=== PATIENT | male | born 1955 | race Caucasian/White ===

== ENCOUNTER 2021-07-14 08:30 | Outpatient (RCR) | payer MEDICARE, SELFPAY ==
--- NOTE | 2021-04-22 08:36 | PCCPR ---
Pre stent states could not walk across the parking lot without SOB.
[2021-04-22 08:38] VITALS: BP 146/62; PULSE 53; RESP 16; O2SAT 97
[2021-04-22 09:03] VITALS: PULSE 53
--- NOTE | 2021-06-12 08:21 | PCCPR ---
Absent Rudolph called states he had a covid 19 booster yesterday and is feeling rough and will not be in to exercise. 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
[2021-06-23 12:21] LABS: Glucose Point of Care 169 mg/dl (65-105)
--- NOTE | 2021-07-08 15:45 | PCCPR ---
Addendum entered by Shalini Kelly RN 07/10/21 08:59: Rudolph called again today states he has lost his taste and is being tested for covid. States his first test cme back negative and has been retested awaiting results. Original Note: Rudolph will be absent tomorrow, not feeling well.
== END 2021-07-14 19:30 | disposition home or self-care (01) ==
LOC: ANHCPREHAB 08:30
PROVIDERS: PCP Family Medicine
DX: Z95.5 Presence of coronary angioplasty implant and graft (principal)
CPT/HCPCS: 93798

== ENCOUNTER 2021-07-14 09:23 | Outpatient (CLI) | payer MEDICARE, SELFPAY ==
[2021-07-14 10:29] LABS: CRP < 0.5 mg/dL (<1.0)
[2021-07-14 10:43] LABS: Erythrocyte Sedimentation Rate 13 mm/hr (0-20)
[2021-07-16 09:08] LABS: Tissue Transglutaminase IgA Ab <1.0 U/mL (<15.0)
[2021-07-16 20:29] LABS: Tissue Transglutaminase IgG Ab <1.0 U/mL (<15.0)
== END 2021-07-14 09:24 | disposition home or self-care (01) ==
PROVIDERS: PCP Family Medicine; Visit Provider Internal Medicine Gastroenterology
DX: K52.9 Noninfective gastroenteritis and colitis, unspecified (principal)
CPT/HCPCS: 36415; 83516; 85652; 86140

== ENCOUNTER 2021-09-22 00:04 | Day surgery (SDC) | payer MEDICARE, SELFPAY ==
[2021-07-04 10:32] VITALS: BMI 31.6
[2021-09-16 12:25] VITALS: BMI 31.6
[2021-09-22 07:53] VITALS: BP 113/73; PULSE 70; RESP 20; TEMP 36.1; O2SAT 96
--- NOTE | 2021-09-22 08:01 | P.PNAN_ITS ---
Anes - Initial Pre Proc Eval Procedure: Operation Date: 09/22/21 09:00 Proposed Procedures p Colonoscopy - Parth Ayala MD Date/Time: 09/22/21 08:01 Surgeon: Parth Ayala MD Pre Op Diagnosis: diarrhea Patient Data Age: 66 Gender: M Height: 1.83 m Weight: 107.1 kg Last Vital Signs Temp 36.1 C L 09/22/21 07:53 Pulse 70 09/22/21 07:53 Resp 20 09/22/21 07:53 BP 113/73 09/22/21 07:53 Pulse Ox 96 09/22/21 07:53 Allergies Allergy/AdvReac Type Severity Reaction Status Date / Time No Known Allergies Allergy Unknown Verified 09/22/21 07:51 Home Medications Medication Instructions Recorded Confirmed Type atorvastatin 80 mg PO HS 04/22/21 09/16/21 History carvedilol 3.125 mg PO BID 04/22/21 09/16/21 History paroxetine HCl 40 mg PO QAM 04/22/21 09/16/21 History sacubitril-valsartan [Entresto] 1 tablet PO BID 04/22/21 09/16/21 History ticagrelor [Brilinta] 90 mg PO Q12H 04/22/21 09/16/21 History insulin glargine [Basaglar KwikPen 10 unit SUBCUT DAILY 04/23/21 09/16/21 History U-100 Insulin] insulin aspart U-100 [Novolog 10 unit SUBCUT AC 07/04/21 09/16/21 History Flexpen U-100 Insulin] nitroglycerin 0.4 mg SUBLINGUAL PRN PRN 07/04/21 09/16/21 History Patient hx anesthesia problems: none Family hx anesthesia problems: none Results Review: All pre-operative results and documents have been reviewed as part of the pre-operative evaluation. [facility] Past Medical History Medical History (Updated 09/22/21 @ 08:02 by Fco Jarvis MD) Anxiety CAD (coronary artery disease) Chronic diarrhea Diabetes mellitus Irritable bowel syndrome with diarrhea Obesity Social History Social History Smoking packs per day: 1 Smoking cigarettes per day: 20.0 Years smoked: 20 Smoking pack-years: 20.00 Smoking status: Former smoker Tobacco type: cigarettes Alcohol intake: never Substance use: never Substance use type: does not use Living arrangements: with friend(s) Spiritual care concerns: No Anes - Eval Final PreProcedure Day of Procedure 09/22/21 08:01 Patient weight: obese Heart: regular rate and rhythm Lungs: clear to auscultation Airway: Mallampati scale class II Neurological: alert and oriented Last oral intake: >/= 8 hours ASA classification: III Emergent: no Anesthetic plan: proceed Anesthesia type and monitoring: general GIVS and standard monitoring Results Review: All pre-operative results and documents have been reviewed as part of the pre-operative evaluation. Informed Consent: The patient's anesthetic plan and its attendant risks and benefits were discussed with the patient/family/POA. Questions were solicited and answers provided to the satisfaction of the patient/family/POA.
[2021-09-22] MEDS: LACTATED RINGERS 1,000 ML 150 ML IV CONT (08:03)
[2021-09-22 08:09] LABS: Glucose Point of Care 223 mg/dl (65-105)
--- NOTE | 2021-09-22 08:29 | PM.HPGS ---
History of Present Illness History of Present Illness Consent: Risks, benefits, and alternatives have been discussed and questions answered. Patient agrees to proceed with procedure. Chief complaint: diarrhea Narrative: Rudolph Felix is a 66 year old male here for colonoscopy because of diarrhea, last colonoscopy 2014, serology for celiac negative. Review of Systems Constitutional: Constitutional: Denies headache(s) and Denies weakness Eyes: Eyes: Denies blurry vision ENT: Reports Normal hearing present, Denies headache(s) and Denies neck pain Cardiovascular: Cardiovascular: Denies chest pain and Denies dyspnea Respiratory: Respiratory: Denies dyspnea Gastrointestinal: Gastrointestinal: Reports no additional gastrointestinal complaints Genitourinary: Genitourinary: Denies dysuria Musculoskeletal: Musculoskeletal: Denies neck pain Integumentary/Breasts: Skin/Breast: Denies dry skin Neurologic: Reports Normal hearing present, Denies headache(s) and Denies weakness Psychiatric: Psychiatric: Denies anxiety Endocrine: Endocrine: Denies change in body appearance Hematologic/Lymphatic: Hematologic/Lymphatic: Denies easy bleeding Allergic/Immunologic: Allergic/Immunologic: Denies urticaria PMFSH Past Medical History Medical History (Updated 09/22/21 @ 08:02 by Fco Jarvis MD) Anxiety CAD (coronary artery disease) Chronic diarrhea Diabetes mellitus Irritable bowel syndrome with diarrhea Obesity Social History Social History Smoking packs per day: 1 Smoking cigarettes per day: 20.0 Years smoked: 20 Smoking pack-years: 20.00 Smoking status: Former smoker Tobacco type: cigarettes Alcohol intake: never Substance use: never Substance use type: does not use Living arrangements: with friend(s) Spiritual care concerns: No Meds Home Medications and Allergies Home Medications Medication Instructions Recorded Confirmed Type atorvastatin 80 mg PO HS 04/22/21 09/16/21 History carvedilol 3.125 mg PO BID 04/22/21 09/16/21 History paroxetine HCl 40 mg PO QAM 04/22/21 09/16/21 History sacubitril-valsartan [Entresto] 1 tablet PO BID 04/22/21 09/16/21 History ticagrelor [Brilinta] 90 mg PO Q12H 04/22/21 09/16/21 History insulin glargine [Basaglar KwikPen 10 unit SUBCUT DAILY 04/23/21 09/16/21 History U-100 Insulin] insulin aspart U-100 [Novolog 10 unit SUBCUT AC 07/04/21 09/16/21 History Flexpen U-100 Insulin] nitroglycerin 0.4 mg SUBLINGUAL PRN PRN 07/04/21 09/16/21 History Allergies Allergy/AdvReac Type Severity Reaction Status Date / Time No Known Allergies Allergy Unknown Verified 09/22/21 07:51 Vital Signs Vital Signs - 24 hr 09/22/21 07:53 Temperature 97 F L Pulse Rate 70 Respiratory Rate 20 Blood Pressure 113/73 Pulse Oximetry 96 Exam Const: General: comfortable and no acute distress HENMT: General nose exam: Normal nares present Eyes: General: appearance normal, both eyes and all related structures Neck: Neck: no JVD Resp: Auscultation: clear to auscultation bilaterally Cardio: Rate: regular rate Rhythm: regular rhythm GI: Inspection: non-distended GI Palp: Yes Soft to palpation Skin: General skin exam: normal color Neuro: General: gait normal Speech: normal speech Extrem: General: normal to inspection Psych: Mental Status: mental status grossly normal Assessment and Plan Assessment and plan (1) Irritable bowel syndrome with diarrhea: Code(s): K58.0 - Irritable bowel syndrome with diarrhea Status: Acute Assessment and Plan: colonoscopy with bx, assess if microscopic colitis
[2021-09-22 08:43] VITALS: BP 101/59; PULSE 58; RESP 14; O2SAT 94
[2021-09-22 08:53] VITALS: BP 97/57; PULSE 55; RESP 16; O2SAT 97
[2021-09-22 09:03] VITALS: BP 130/70; PULSE 55; RESP 18; O2SAT 98
== END 2021-09-22 09:15 | disposition home or self-care (01) ==
PROVIDERS: PCP Family Medicine; Visit Provider Internal Medicine Gastroenterology
PROC: 0DJD8ZZ Inspection of Lower Intestinal Tract, Via Natural or Artificial Opening Endoscopic (ICD-10-PCS; CPT 45378; principal; 2021-09-22 09:00)
DX: R19.7 Diarrhea, unspecified (principal); D12.2 Benign neoplasm of ascending colon; D12.5 Benign neoplasm of sigmoid colon; Z90.49 Acquired absence of other specified parts of digestive tract; K64.8 Other hemorrhoids; F41.9 Anxiety disorder, unspecified; I25.10 Atherosclerotic heart disease of native coronary artery without angina pectoris; E11.9 Type 2 diabetes mellitus without complications; K58.0 Irritable bowel syndrome with diarrhea; Z87.891 Personal history of nicotine dependence; Z79.4 Long term (current) use of insulin; E66.9 Obesity, unspecified; Z68.32 Body mass index [BMI] 32.0-32.9, adult
CPT/HCPCS: 45385; 45380; 82948; 88305; J2704; J7120

== ENCOUNTER 2023-09-17 10:25 | Outpatient (CLI) | payer MEDICARE, SELFPAY ==
[2023-09-17 12:23] LABS: Toxigenic C. Diff NEGATIVE (NEGATIVE)
[2023-09-27 19:11] LABS: Calprotectin, Stool 80 mcg/g; Pancreatic Elastase, Stool 357 mcg/g
== END 2023-09-17 10:26 | disposition home or self-care (01) ==
PROVIDERS: PCP Family Medicine; Visit Provider Nurse Practitioner
DX: K52.9 Noninfective gastroenteritis and colitis, unspecified (principal)
CPT/HCPCS: 82653; 83993; 87045; 87177; 87209; 87269; 87427; 87449; 87493

== ENCOUNTER 2025-02-01 07:44 | Outpatient (CLI) | payer MEDICARE, SELFPAY ==
--- NOTE | ~2025-02-01 | PE_ITS ---
EXAMINATION: PET_PETPSMAST_PT DATE: 02/01/2025 09:54 INDICATION: Prostate cancer TECHNIQUE: 4.839 mCi of Illucix Ga-[id number]) was administered i.v. Low dose computed brooke graphy (CT) images were acquired from the base of the brain to the base of the brain to the proximal thighs for attenuation correction and anatomic localization. Positron emission tomography (PET) image s were acquired in the same distribution beginning 88 minutes after injection. Images including fused PET/CT images were reconstructed in axial, coronal, and sagittal planes. Automated exposure control technique was employed. The dose-length product was 1316.45mGy-cm. COMPARISON: None FINDINGS: Head/neck: Typical pattern of symmetric physiologic increased activity in the lacrimal, parotid and submandibula r glands as well as along the mucosa of the nasal and oral cavities, pharynx and hypopharynx. No path ologically enlarged cervical lymphadenopathy or suspicious foci of increased uptake in the visualized head or neck. Chest: There are couple nonspecific 5-6 and ulnar nodules without evident pacemaker activity in the left low er lobe. No other suspicious pulmonary nodules, pneumonia, pulmonary edema or pleural effusion. Heart size is normal. Atherosclerotic coronary artery calcification. Aortic valve calcification. No perica rdial effusion. Thoracic aorta is normal in caliber. No pathologically enlarged or PSMA avid thoracic lymphadenopathy. Abdomen/pelvis/proximal thighs: Physiologic renal accumulation and excretion of activity in the kidneys, bladder and along portions o f ureters. Prostatomegaly measuring 4.9 x 4.4 cm. Small focus of increased uptake posteriorly in the left peripheral zone of the enlarged prostate with maximal SUV of 6.8 likely corresponding to the rep orted biopsy-proven primary prostate cancer.. Normal degree and slightly heterogenous pattern of incr eased uptake throughout the liver and spleen without radiologic correlate or dominant PSMA avid lesio n. Cholecystectomy clips at the gallbladder fossa. The pancreas and bilateral adrenal glands are norm al. Moderate uptake scattered throughout the bowels with typical duodenal and proximal jejunal predom inance and without radiologic correlate, also likely physiologic. Mild scattered diverticulosis witho ut adjacent from trace stranding to suggest diverticulitis. No other abnormal foci of increased uptak e or pathologically enlarged lymphadenopathy in the abdomen, pelvis or proximal thighs. Musculoskeletal: Small focus of likely extravasated uptake at the site of injection at the left hand. No suspicious ly tic, blastic or abnormally PSMA avid bone lesions. IMPRESSION: 1. Small focus of increased uptake at the left peripheral zone of the enlarged prostate consistent wi th primary prostate cancer. No evident metastatic disease. 2. A couple indeterminate 5-6 mm left lower lobe nodules without PSMA activity, most likely sequela o f old granulomatous disease. If the patient is low risk for lung cancer, no follow-up is needed. If t he patient is high risk (i.e., history of smoking or asbestos or significant radiation exposure), opt ional follow-up chest CT could be considered at 12 months. Reviewed, dictated and finalized at location A. IMPRESSION: 1. Small focus of increased uptake at the left peripheral zone of the enlarged prostate consistent with primary prostate cancer. No evident metastatic disease . 2. A couple indeterminate 5-6 mm left lower lobe nodules without PSMA activity, most likely sequela of old granulomatous disease. If the patient is low risk f or lung cancer, no follow-up is needed. If the patient is high risk (i.e., hist ory of smoking or asbestos or significant radiation exposure), optional follow- up chest CT could be considered at 12 months.
--- OUTSIDE RECORDS SUMMARY | 2025-02-01 07:49 | XMS_ITS | Clinical Summary ---
Author Organization [facility] Address [address] [place] [address] Care Team Providers Care Environmental Manager Name Role Phone Misbah Muniz MD Primary Care Provider [phone] Source Comments [facility],non-owned Affiliates and Associated Physician Practices is amultiple site organization consisting of ambulatory clinics and hospital sitesin [place], [place], [place] and [place]. This disclosure is being madepursuant to the Care Everywhere program and may not contain all information available regarding this patient. Last updated 18.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 Gender Identity Not on file Sexual Orientation Not on file Plan of Treatment Health Maintenance Due Date Last Done Comments COLOGUARD (AGES 45-75) - COL ON CA SCREENING 1953 COLON MONITORING 1953 COLONOSCOPY - COLON CA SCREENING 1953 CT COLONOGRAPHY - COLON CA SCREENING 1953 Colorectal Cancer Screening 1953 FIT - COLON CA SCREENING 1953 FLEX SIG - COLON CA SCREENING 1953 LIPID TESTING 1953 MEDICARE AWV 12 MONTHS 1953 HEPATITIS C SCREENING 05/06/1971 DTAP/TDAP/TD VACCINES (1 - Tdap) 1972 PNEUMOCOCCAL VACCINE 50+ (1 of 1 - PCV) 2003 ZOSTER VACCINE (1 of 2) 2003 COVID-19 VACCINE ( - 2023-2 5 season) 2024 DEPRESSION SCREENING 08/02/2024 INFLUENZA VACCINE (Season Ended) 2025 Respiratory Syncytial Virus (RSV) Vaccine Pt: or over 60 yrs (1 - 1-dose 75+ series) 2028 HEPATITIS B VACCINE Aged Out No longe r eligible based on patient's age to complete this topic HIB VACCINE Aged Out No longer eligi ble based on patient's age to complete this topic HPV VACCINE Aged Out No longer eligi ble based on patient's age to complete this topic MENINGOCOCCAL (Group B) VACC INE SHARED DECISION-MAKING Aged Out No longer eligibl e based on patient's age to complete this topic MENINGOCOCCAL GROUPS A/C/Y/W VACCINE Aged Out No longer eligible b ased on patient's age to complete this topic Insurance MEDICARE [facility] Address: [address] [place] [address] MEDICARE ANTHEM Care Teams Environmental Manager Relationship Specialty Start Date End Date Misbah Muniz MD [address] [place] [address] PCP - General 09/25/21
--- OUTSIDE RECORDS SUMMARY | 2025-02-01 07:49 | XMS_ITS | Clinical Summary ---
Author Organization [facility] Address [address] [place] [address] Care Team Providers Care Painter Ordnance Name Role Phone Misbah Muniz MD Primary Care Provider [phone] Homa King MANAGEMENT INSTRUCTOR Unavailable [phone] Karri Courtney MD Unavailable [phone] Sarah Blount MANAGEMENT INSTRUCTOR Unavailable [phone] Lakhwinder Jarrell MD Unavailable Tyler Luna MD Unavailable Allergies Active Allergy Reactions Criticality Noted Date Comments Dapagliflozin Other (See comments) High 03/02/2023 UTI Metformin Diarrhea High 03/02/2023 Medications lancets (ONETOUCH DELICA LANCETS) 33 gauge misc use to check glucose 4x daily 400 each 3 2013 Active sacubitril-valsa rtan (ENTRESTO) 24-26 mg tabletIndication s:chronic heart failure Take 1 tablet by mouth 2 (two) times a day 60 tablet 2018 Active aspirin 81 mg enteric coated tabletIndication s:acute myocardial infarction,Myoca rdial Reinfarction Prevention Take 1 tablet (81 mg total) by mouth daily 30 tablet 2018 Active atorvastatin (LIPITOR) 80 mg tablet Take 1 tablet (80 mg total) by mouth daily Active carvediloL (COREG) 6.25 mg tablet Take 0.5 tablets (3.125 mg total) by mouth 2 (two) times a day with meals 2021 Active blood-glucose sensor (FreeStyle Henry 3 Sensor) device Act paolo blood glucose diagnostic (OneTouch Ultra Test) stripIndications :Type 2 diabetes mellitus with hyperglycemia, with long-term current use of insulin ([facility]),Hyperlipid emia, unspecified hyperlipidemia type TEST FOUR TIMES DAILY 400 strip 1 2022 Active nitroglycerin (NITROSTAT) 0.[address] 1 tablet (0.4 mg total) under the tongue every 5 (five) minutes as needed for chest pain 30 tablet 3 2023 Active Vascepa 1 gram capsuleIndicatio ns:Hyperlipidemi a associated with type 2 diabetes mellitus ([facility]) TAKE 2 CAPS BY MOUTH TWICE A DAY 360 capsule 2 2024 Active pen needle, diabetic (BD Ultra-Fine Mini Pen Needle) 31 gauge x 3/16 needleIndication s:Type 2 diabetes mellitus with hyperglycemia, with long-term current use of insulin ([facility]) USE DIRECTED THREE TIMES DAILY 300 each 3 2024 Active tamsulosin (FLOMAX) 0.4 mg extended release capsule TAKE 1 CAPSULE BY MOUTH EVERY DAY WITH DINNER 90 capsule 1 2024 Active LANTUS 100 unit/mL (3 mL) pen for injectionIndicat ions:Type 2 diabetes mellitus with hyperglycemia, with long-term current use of insulin ([facility]) Inject 30 Units under the skin nightly 30 mL 3 2024 Active Additional Information Patient taking differently: 20-30 Unitssubcutaneous Nightly, Reported on 01/24/2025 gabapentin (NEURONTIN) 100 mg capsule Take 1 capsule (100 mg total) by mouth 3 (three) times a day 90 capsule 4 12/12 Active traMADoL (ULTRAM) 50 mg tabletIndication s:Chronic right shoulder pain Take 1 tablet (50 mg total) by mouth every 6 (six) hours as needed for pain 30 tablet 2024 Active mesalamine (LIALDA) 1.2 gram EC tablet TAKE 3 TABS BY MOUTH DAILY 2024 Active Trulicity 1.5 mg/0.5 mL pen injectorIndicati ons:type 2 diabetes mellitus Inject 0.5 mL (1.5 mg total) under the skin once a week 6 mL 3 01/03 Active insulin lispro (HumaLOG) 100 unit/mL pen for injectionIndicat ions:type 2 diabetes mellitus Inject 5-12 Units under the skin 3 (three) times a day before meals 45 mL 2 01/03 Active PARoxetine (PAXIL) 20 mg tablet TAKE 1 TABLET BY MOUTH EVERY DAY IN THE MORNING 90 tablet 2 2024 Active cholecalciferol (VITAMIN D-3) 3,000 unit tablet Take 0.6667 tablets (2,000 Units total) by mouth once a week Active ergocalciferol (VITAMIN D) 50,000 unit capsuleIndicatio ns:Vitamin D deficiency Take 1 capsule (50,000 Units total) by mouth once a week 12 capsule 4 01/24 Discontinued( Therapy completed) Trulicity 1.5 mg/0.5 mL pen injectorIndicati ons:type 2 diabetes mellitus Inject 0.5 mL (1.5 mg total) under the skin once a week 6 mL 3 01/03 Discontinued( Reorder) PARoxetine (PAXIL) 20 mg tablet TAKE 1 TAB BY MOUTH EVERY MORNING 100 tablet 1 01/04 Discontinued insulin lispro (HumaLOG) 100 unit/mL pen for injection Inject 30-45 Units under the skin 3 (three) times a day before meals 120 mL 3 01/03 Discontinued( Reorder) cyclobenzaprine (FLEXERIL) 10 mg tabletIndication s:Muscle cramping Take 1 tablet (10 mg total) by mouth 3 (three) times a day as needed for muscle spasms 30 tablet 01/24 Discontinued( Therapy completed) insulin aspart (NovoLOG) 100 unit/mL (3 mL) pen for injection SSI, SubQ, tid with meals, 0 01/24 Discontinued( Therapy completed) Active Problems Problem Noted Date Diagnosed Date Lung nodules 01/04/2025 Assessment & Plan (01/04/2025 12:05 PM CDT): 0.8 cm right lower lobe nodule and 0.6 cm left lobe nodule. Will check chest CT. Patient without significant smoking history, smoked for 1 year. He denies any cough or shortness for breath. No fevers or night sweats. Prostate irregularity 12/12/2024 Assessment & Plan (01/04/2025 12:02 PM CDT): Scheduled for biopsy 01/16 Assessment & Plan (12/12/2024 8:46 AM CDT): Working with urology, mri of prostate showing lesion. Planning biopsy with urology, Dr. Rocha. Bradycardia 12/12/2024 Assessment & Plan (12/12/2024 12:54 PM CDT): Holter ordered by cardiology, patient will picker and sorter load and unload tomorrow. Carvedilol reduced from 6.25 bid to 3.125 bid. He is feeling well, denies any dizziness, syncope or near-syncope. Chronic right shoulder pain 12/12/2024 Assessment & Plan (12/12/2024 12:53 PM CDT): Working with Orthopedic surgery, difficult receiving steroid injection as patient has large lipoma on right shoulder. He is scheduled for follow-up with Dr. Biggs later this month. Shoulder impingement syndrome, right 10/04/2024 Aftercare following right sh oulder joint replacement surgery 10/04/2024 Urinary retention 09/21/2024 Cervicalgia 05/09/2024 Assessment & Plan (2024 7:04 AM CDT): No injury; working with chiropractor. Has been taking Celebrex and tizanidine with little improvement in pain. Pain is muscular in nature however patient has not had any imaging, will check x-ray of neck. Recommended physical therapy, patient is agreeable. Encouraged continued use of NSAIDs, p.r.n. muscle relaxers and gentle stretching/range of motion exercises. Patient denies any radiating pain or numbness. Vitamin D deficiency 05/09/2024 Fatigue 05/04/2023 Assessment & Plan (05/04/2023 12:20 PM CDT): Patient reports gradual onset of increased fatigue. He reports sleeping in longer than normal and daytime sleepiness. Denies morning headaches, denies recent weight gain, denies snoring. Reports waking up with a dry mouth. Discussed sleep medicine referral for evaluation of DENILSON. Paroxysmal atrial fibrillation 05/04/2023 Assessment & Plan (2024 6:56 AM CDT): No recurrence continues following with Cardiology. Assessment & Plan (05/04/2023 12:09 PM CDT): Continue current medication regimen, aspirin 81 mg, brilinta 90mg and enestro 24-26 mg daily. Following with cardiology. [facility]/04/[facility]23 Assessment & Plan (2024 7:02 AM CDT): Preventative exam; reviewed screenings and vaccinations. Influenza vaccine given today. Assessment & Plan (05/04/2023 12:16 PM CDT): Preventative exam. Reviewed recommended preventative screenings and vaccinations. Discussed health maintenance topics. Encourage regular physical activity. Encourage annual flu vaccine. Ordered fasting labs today. Current on colonoscopy. Hyperlipidemia associated with type 2 diabetes fanta mora 01/14/2022 Assessment & Plan (01/03/2025 9:37 AM CDT): Chronic problem. Currently taking Atorvastatin 80mg & new vascepa 2gm bid. Last lipid panel: 12/12/24 LDL=78, NZ=083. Assessment & Plan (12/12/2024 1:14 PM CDT): LDL = 78, continues high-intensity statin, atorvastatin 80 mg daily as well as Vascepa. Strongly encouraged working on avoiding dietary fats such as fried, greasy foods as well as limiting red meats. Assessment & Plan (09/07/2024 9:50 AM METALLURGY TEACHER): Chronic problem. Currently taking Atorvastatin 80mg & new vascepa 2gm bid. Last lipid panel: 05/09/24 LDL=87, BV=110 Assessment & Plan (05/22/2024 9:35 AM CDT): Chronic problem. Currently taking Atorvastatin 80mg & new vascepa 2gm bid. Last lipid panel: 05/09/24 LDL=87, SO=850 Assessment & Plan (01/18/2024 1:48 PM CDT): Chronic problem. Currently taking Atorvastatin 80mg & new vascepa 2gm bid. Last lipid panel: 05/04/23 LDL=77, UG=740. Assessment & Plan (09/21/2023 1:08 PM METALLURGY TEACHER): Chronic problem. Currently taking Atorvastatin 80mg & new vascepa 2gm bid. Last lipid panel: 05/04/23 LDL=77, RI=209. Assessment & Plan (06/15/2023 11:47 AM METALLURGY TEACHER): Chronic problem. Currently taking Atorvastatin 80mg & new vascepa 2gm bid. Last lipid panel: 05/04/23 LDL=77, TW=794. No changes at this time. Assessment & Plan (05/04/2023 12:22 PM CDT): Continues atorvastatin 80 mg and denies myalgias. Will repeat fasting labs. Assessment & Plan (11/24/2022 10:15 AM CDT): Chronic problem. Currently taking Atorvastatin 80mg. Last lipid panel: 05/18/22 LDL=89, MU=354. No changes at this time. Assessment & Plan (04/23/2022 9:03 AM CDT): Chronic problem. On statin therapy, no changes. Assessment & Plan (01/15/2022 9:26 AM CDT): Chronic problem. On statin therapy, no changes. Flank pain 07/24/2021 Assessment & Plan (07/24/2021 12:49 PM METALLURGY TEACHER): Results for orders placed or performed in visit on 07/24/21 POCT urinalysis dipstick Result Value Ref Range Color, Urine, POC Yellow Clarity, ur, POC Clear Clear Glucose, ur, POC Negative Negative mg/dL Bilirubin, ur, POC Negative Negative, Small, Moderate, Large Ketones, ur, POC Negative Negative Specific [place], POC 1.025 1.005 - 1.030 Blood, ur, POC Negative Negative pH, ur, POC 7.0 5.0 - 8.0 Protein, ur, POC Negative Negative Urobilinogen, urine, POC 0.2 0.2 - 1.0 mg/dL Nitrite, ur, POC Negative Negative Leukocytes, ur, POC Negative Negative Lot Number [id number] Discussed need to increase water intake, patient drinking 16oz or less of water per day. Will send urine for culture. Encounter for prostate cancer screening 07/24/20 Assessment & Plan (07/24/2021 12:49 PM METALLURGY TEACHER): PSA ordered. Chest pain 03/20/2021 Chronic bilateral low back pain without sciatica 08/13/2020 Assessment & Plan (07/24/2021 12:50 PM METALLURGY TEACHER): Discussed differential. Will obtain imaging today to determine next steps. Will plan for PT and nsaids. Reviewed s/s warranting return. Assessment & Plan (08/13/2020 9:40 AM METALLURGY TEACHER): Encouraged otc tylenol prn back pain. Discussed heat, gentle ROM, increased activity/core strengthening & other non pharm methods of pain relief. Cyclobenzaprine sent. Reviewed med SE & scheduling. UA/cx ordered. Will contact w/results once rec'd. Reviewed red flags. Current moderate episode of major depressive disorder without prior episode 04/30/2020 Assessment & Plan (12/12/2024 1:04 PM CDT): Feels moods are stable overall, is frustrated with mobility limitations related to right shoulder pain. Typically is gardening this time of year. He overall feels that moods are managed well with current dosage of paroxetine 20 mg daily. We did discuss briefly adjusting medications and patient prefers to continue medication without change and will continue to monitor at this time. He is aware to reach out with any changes or concerns. He denies feeling hopeless or having any thoughts of self- harm. Assessment & Plan (05/04/2023 12:14 PM CDT): Patient reports moods are stable. He has been taking paroxetine for many years and reports a good response. Continue paroxetine 20 mg daily. Benign prostatic hyperplasia with lower urinary tract symptoms 08/24/2019 Overview (08/24/2019): Added automatically from request for surgery [id number] Coronary artery disease invo lving [place] coronary artery of [place] heart 01/12/2019 Overview (04/18/2021): Status post Synergy GAEL to mid RCA, Synergy GAEL to mid right PDA and another Synergy GAEL to mid circumflex on 10 January 2019 (SB). No ischemia on Cardiolite 20 March 2021. LVEF of 60%. Assessment & Plan (12/12/2024 1:13 PM CDT): Continue secondary prevention with atorvastatin and aspirin. Denies any chest/pressure or shortness for breath. Has nitro on hand if needed, denies use of nitro. Assessment & Plan (2024 7:03 AM CDT): Denies any chest pain or pressure. Continue secondary prevention with atorvastatin and aspirin. Requesting refill of nitroglycerin, has not required use of nitro. Assessment & Plan (05/04/2023 12:51 PM CDT): Continue secondary prevention. Assessment & Plan (01/12/2019 9:36 AM CDT): Patient presented to the emergency department with complains of pressure-like chest pain and shortness of breath after was discharged earlier yesterday. Cardiac workup so far was negative. EKG without any interval changes. Troponins remain negative. Will continue with telemetry monitoring Third troponin still pending. Allergy evaluated the patient and cleared for discharge if troponins remain negative. Patient to follow up with Dr. Courtney after discharge Hyponatremia 01/12/2019 Assessment & Plan (01/12/2019 9:37 AM CDT): Mildly hyponatremic. Likely secondary to fluid overload Was started on low-dose of Lasix. Follow up outpatient with Cardiology and PCP with repeat labs Hyperkalemia 01/12/2019 Assessment & Plan (01/12/2019 9:38 AM CDT): Mild hyperkalemia. A patient's medications had recently been changed to Started on low-dose Lasix. Patient to have a follow-up with repeat labs in 2-3 days Anxiety 01/12/2019 Assessment & Plan (01/12/2019 9:38 AM CDT): Xanax 0.25 p.o. B.i.d. Consider increasing the dose if needed Stable angina 01/09/2019 Assessment & Plan (01/09/2019 11:39 PM CDT): Concerning for unstable angina Will keep the patient NPO after [place] Planned for cardiac cath in a.m. By Dr. Courtney Cardiology consult Serial troponins Continue cardiac pertinent home medications NTG and ASA Morphine as needed Atrial fibrillation with RVR ([facility]) 9 Overview (04/18/2021): Not on full-dose oral anticoagulation. Assessment & Plan (01/12/2019 9:32 AM CDT): Rate controlled. Mandie, Currently on Eliquis oral anticoagulation. Managed by Cardiology. Continue with amiodarone and metoprolol with holding parameters. Discontinue lisinopril. Continue with entresto Assessment & Plan (01/10/2019 5:01 AM CDT): Patient presented to theED with CHATMAN and CP on exertion Troponins Negative EKG - no acute ischemic changes but noted to be in AFib with RVR Patient received aloading dose of cardizem and started on cardizem drip. BP was too low. cardizem drip was discontinue Patient received a dose digoxin 500mcg with improvement Currently in Afib With ventricular rate of low 110s Continue monitoring, Darekvest is on NPO after [place] Cardiology Consultted, patient is planned for Cardiac catheterization in a.m. Assessment & Plan (12/29/2018 5:20 PM CDT): Patient was seen and evaluated by Cardiology. He was switched to Eliquis oral anticoagulation Needs to rule out [place] for symptoms of angina. Patient possibly to get cardiac stress test or even cardiac catheterization - will follow up with Cardiology recommendations. Echocardiogram was done today consistent with visually estimated Ejection fraction at 30 %. Started metoprolol and entrsto Assessment & Plan (12/29/2018 2:26 AM CDT): Patient currently on a Cardizem drip. He also received digoxin and Lopressor. Cardiology is following. Patient still in an irregular heart rhythm at this time and tele showing a flutter. Chads Vasc is at least 3 given patient's age, diabetes and hypertension. He is currently on therapeutic dosing of Lovenox. CHATMAN (dyspnea on exertion) 12/29/2018 Assessment & Plan (01/09/2019 11:30 PM CDT): Suspect CHF due to rapid Afib v.s CAD Planned for Cardiac Cath in a.m. Assessment & Plan (12/29/2018 5:18 PM CDT): Echo was obtained today. Conclusions: Normal left ventricular wall thickness. Left ventricle cavity is within upper limits of normal. Moderate global left ventricular systolic dysfunction. Normal left ventricular diastolic function. Ejection fraction is visually estimated at 30 %. Estimated peak RVSP is 42-47 mmHg. Trivial regurgitation in the tricuspid valve. Patient was started on and rest on metoprolol. Cardiology on board. Assessment & Plan (12/29/2018 2:23 AM CDT): Echo has been ordered. Cardiac workup per cardiology. Chronic systolic congestive heart failure 2018 Overview (04/18/2021): Moderate LV dysfunction on echo 10 January 2019. Normal LVEF on echo 20 March 2021. On Entresto 24/26 b.i.d., Coreg 3.125 b.i.d. Assessment & Plan (12/12/2024 12:55 PM CDT): Managed by cardiology, continue Entresto. Denies any lower extremity swelling or shortness for breath. Clinically euvolemic. Assessment & Plan (05/09/2024 7:45 PM CDT): Stable; no changes in weight or lower extremity swelling. Assessment & Plan (05/04/2023 12:52 PM CDT): Denies chest pain/pressure, shortness of breath, or peripheral edema. No changes in weight. Following with cardiology. Assessment & Plan (01/12/2019 9:34 AM CDT): Stable and improving. BNP is down from 4000 to 1100 Continue current medications Assessment & Plan (12/29/2018 5:27 PM CDT): Echocardiogram results today consistent with: Normal left ventricular wall thickness. Left ventricle cavity is within upper limits of normal. Moderate global left ventricular systolic dysfunction. Normal left ventricular diastolic function. Ejection fraction is visually estimated at 30 %. Estimated peak RVSP is 42-47 mmHg. Trivial regurgitation in the tricuspid valve. This is secondary to persistent a flutter most likely. Cardiology is on board. Serial troponins so far were negative. EKG was without acute ischemic changes Will follow up with Cardiology recommendations. Hypertension associated with diabetes 11/30/2017 Assessment & Plan (01/03/2025 9:38 AM CDT): Chronic problem. Controlled on current entresto 24-26mg bid, carvedilol 6.25mg bid. Managed by cardiology. Assessment & Plan (09/07/2024 9:50 AM METALLURGY TEACHER): Chronic problem. Controlled on current entresto 24-26mg bid, carvedilol 6.25mg bid. Managed by cardiology. Assessment & Plan (05/22/2024 9:35 AM CDT): Chronic problem. Controlled on current entresto 24-26mg bid, carvedilol 6.25mg bid. Managed by cardiology. Assessment & Plan (05/09/2024 7:14 PM CDT): Condition is stable Discussed/ordered labs, encouraged healthy, low carbohydrate lifestyle and at least 150min/week of exercise, continue on entresto and carvedilol Assessment & Plan (01/18/2024 1:48 PM CDT): Chronic problem. Controlled on current entresto 24-26mg bid, carvedilol 6.25mg bid. Managed by cardiology. Assessment & Plan (09/21/2023 1:08 PM METALLURGY TEACHER): Chronic problem. Controlled on current entresto 24-26mg bid, carvedilol 6.25mg bid. Managed by cardiology. Assessment & Plan (06/15/2023 11:46 AM METALLURGY TEACHER): Chronic problem. Controlled on current entresto 24-26mg bid, carvedilol 6.25mg bid. Managed by cardiology. No changes at this time. Assessment & Plan (05/04/2023 12:21 PM CDT): Blood pressure well controlled today 124/72. Continue current medication regimen. Assessment & Plan (03/02/2023 4:18 PM CDT): Chronic, well controlled Importance of low salt diet and exercise were discussed Continue current meds Assessment & Plan (11/24/2022 10:18 AM CDT): Chronic problem. Controlled on current entresto 24-26mg bid, carvedilol 6.25mg bid. Managed by cardiology. No changes at this time. Assessment & Plan (08/25/2022 2:14 PM METALLURGY TEACHER): Chronic , well controlled Continue current meds including Entresto Assessment & Plan (04/23/2022 9:03 AM CDT): Controlled on current medications, no changes. Assessment & Plan (01/15/2022 9:26 AM CDT): Controlled on current medications, no changes. Assessment & Plan (05/22/2021 3:02 PM CDT): Chronic condition, stable. Controlled on current medications, no changes. Assessment & Plan (01/15/2021 12:53 PM CDT): Controlled on current medications. Continue plan. Assessment & Plan (09/19/2020 3:06 PM METALLURGY TEACHER): Controlled on current medications. Continue plan. Assessment & Plan (05/23/2020 3:36 PM CDT): Controlled on current medications. Continue plan. Assessment & Plan (02/22/2020 12:02 PM CDT): Controlled on current medications. Continue plan. Assessment & Plan (11/14/2019 2:48 PM CDT): Goal blood pressure is less than 140/85 Low salt diet recommended Daily aerobic exercise Continue current meds, including JAN-I or ARB Assessment & Plan (05/16/2019 3:37 PM CDT): Controlled on current medications. Continue plan. Continue follow up with cardiology Assessment & Plan (02/14/2019 3:27 PM CDT): Controlled on current medications. Continue follow up with cardiology Assessment & Plan (01/12/2019 9:33 AM CDT): Blood pressure is stable, lower side. Continue with current medications with holding parameters. Patient was started on small dose of Lasix by Cardiology. Discussed with patient orthostatic hypotension and associated symptoms and provided with fall precautions. Assessment & Plan (01/09/2019 11:32 PM CDT): Continue with cardiac pertinent home medications Assessment & Plan (12/29/2018 5:24 PM CDT): Patient was switched to Entresto. Lisinopril had been discontinued. Continue with metoprolol Currently on Cardizem drip Assessment & Plan (12/29/2018 2:22 AM CDT): Patient is normotensive at this time. He is on a Cardizem drip. Lisinopril has been continued with hold parameters. Will continue to monitor. Assessment & Plan (10/12/2018 9:14 AM CDT): Controlled on current medications. Assessment & Plan (11/30/2017 11:44 AM CDT): Goal blood pressure is less than 140/85 Low salt diet recommended Daily aerobic exercise Continue current meds, including JAN-I or ARB Class 1 obesity without seri ous comorbidity with body mass index (BMI) of 32.0 to 32.9 in adult 05/26/2017 Assessment & Plan (01/04/2025 12:07 PM CDT): Discussed healthy diet and importance of regular physical activity. Assessment & Plan (12/12/2024 12:55 PM CDT): BMI stable, will continue to monitor. Assessment & Plan (11/14/2024 9:03 AM CDT): Weight appropriate for patient. Assessment & Plan (05/09/2024 7:10 PM CDT): Discussed healthy diet and importance of regular physical activity. Assessment & Plan (07/24/2021 12:49 PM METALLURGY TEACHER): Discussed need for weight loss. Discussed healthy diet and importance of regular physical activity. Assessment & Plan (08/13/2020 9:39 AM METALLURGY TEACHER): Reviewed need to lose weight, reviewed health benefits. Reviewed recommendations for daily intake & activity 20-30 minutes/day. Discussed healthy diet and importance of regular physical activity. Assessment & Plan (01/09/2019 11:31 PM CDT): Dietary and lifestyle modifications Assessment & Plan (05/26/2017 11:13 AM CDT): Importance of following diet and exercising discussed. Calculus of gallbladder with out cholecystitis without obstruction 05/13/2017 Assessment & Plan (05/13/2017 3:25 PM CDT): The patient will need a CT with and without liver study due to ultrasound abnormalties. After ct results are received we will schedule the patient for a laparoscopic cholecystectomy with . Diarrhea, functional 12/31/2016 Overview (01/01/2017): Functional diarrhea Assessment & Plan (02/07/2019 3:39 PM CDT): He is ecstatic over the results of the last 2 weeks with the frit and the questran qid. Has decrease number and increased solidity. He will recap when cardiac rehab is finiashed ans we will reassess necessiy of colon evluation Assessment & Plan (01/17/2019 3:49 PM CDT): Reviewed notes,lqabs,images,procedures. 6 mos of explosive D on arising and after meals. No blood, no weight leoss. Has been given abios and lomotil without benefit and C Dif neg. Colon 11/14. In middle of cardiac efval and treatment with recent stents and A Fib and carying defibrillator. Will defer colon eval in light of ongoing cardiac. Will hi fiber diet and questran and return with shit list In 2 weeks. Assessment & Plan (12/29/2018 5:23 PM CDT): Patient had infectious workup outpatient by PCP which was negative His scheduled outpatient follow-up with Dr. Osman for colonoscopy Patient was recently started on Lomotil Will discontinue Lomotil due to possible side effects of tachycardia related to atropine. C diff was negative Will check for the electrolytes. Replete as needed Continue telemetry monitoring Assessment & Plan (12/29/2018 2:24 AM CDT): Patient states he was having up to 6 episodes a day however was started on Lomotil which has improved his diarrhea. Will send a C diff if patient continues to have loose stools. He states he had antibiotics 3 months ago. Fatty tumor 12/23/2016 Overview (12/25/2016): Lipoma Abrasion and/or friction burn of forearm, withou t infection 11/12/2016 Overview (12/25/2016): Forearm abrasion, non-infected Lipoma of right shoulder 11/12/2016 Overview (12/25/2016): Lipoma of right shoulder Assessment & Plan (12/19/2024 9:03 AM CDT): Given its increasing size and symptomatic nature we will set him up for removal. He currently however has a Holter monitor on. He is set to follow up with Cardiology this week. We will 1st ensure he is cleared from their standpoint to undergo the procedure. We will then set him up with a date. We have discussed postoperative restrictions. All questions answered. Spider bite wound 06/04/2016 Overview (11/06/2016): Spider bite, accidental or unintentional, initial encounter Assessment & Plan (01/15/2021 12:57 PM CDT): A1c 7.6. Little improvement. FBG and ac BG acceptable. Suspect issue r/t pc excursions. Recommend random pc checks with some ac BG. BG goals reviewed. Check on coverage for SGLT2. Acquired trigger finger 08/27/2014 Overview (11/05/2016): Trigger finger Type 2 diabetes mellitus wit h hyperglycemia, with long-term current use of insulin 12/16/2013 Overview (11/06/2016): DMII WO CMP NT ST UNCNTR Assessment & Plan (01/03/2025 9:50 AM CDT): Chronic problem. A1c not at goal but improved slightly from 8.6% 09/07/24 to now 8.4%. had steroid injections R shoulder approx 6 wks ago. BG have become lower & under control past 2-3 weeks. GMI on FSL showing 7.3%. Current medications: Trulicity 1.5mg weekly Basaglar 20-25 units daily Humalog 5 units twice times daily before meals (typically 5-12 units/meal). DN can be 8-12 units. UTD on labs. UTD DM eye exam (12/23/23 [facility]). Had appt 11/2024; will send letter to get copy of report. Strive for regular exercise (30min most days) and diet (get at least 4-5 servings of fruit and veggies daily, avoid processed foods, increase lean protein intake and decrease carb portions as well as fruit juices, regular soda & desserts). Watch carbs and simple sugars. Check the blood sugar Freestyle Henry 3. Check the feet daily for skin breakdown and infection. Assessment & Plan (12/12/2024 1:05 PM CDT): A1c 8.6%, now 8.4 %. Vaapyd-39-47 units daily. Humalog 5-8 units with meals, typically 5 units with lunch and 8 units with dinner. Patient reports he typically does not eat breakfast. Following with endocrinology, A1c has shown slight improvement continue focusing on diet changes. Recommended Lantus 25 units nightly Assessment & Plan (09/07/2024 10:06 AM METALLURGY TEACHER): Chronic problem. A1c not at goal and has worsened from 7.7% 05/22/24 to now 8.6%. several steroid injections recently. Discussed that with any steroid injection or tablets: increase basaglar by 10 units for the next 5-6 days. Monitor Freestyle closely. Once he sees your blood sugars start to taper down--start to taper down basaglar again. Current medications: Trulicity 1.5mg weekly Basaglar 20-25 units daily Novolog 5 units three times daily before meals (typically 5-8 units/meal) UTD on labs. UTD DM eye exam (12/23/23 [facility]). Strive for regular exercise (30min most days) and diet (get at least 4-5 servings of fruit and veggies daily, avoid processed foods, increase lean protein intake and decrease carb portions as well as fruit juices, regular soda & desserts). Watch carbs and simple sugars. Check the blood sugar Freestyle Henry. Check the feet daily for skin breakdown and infection. Assessment & Plan (05/22/2024 10:07 AM CDT): Chronic problem. A1c not at goal and had increased from 7.6% 01/18/24 to now 7.7%. recently completed 7 day steroids for R shoulder pain. Had adjusted his insulin accordingly & was well controlled. Current medications: Trulicity 1.5mg weekly--missed 4 weeks Basaglar 20-25 units daily Novolog 5 units three times daily before meals (typically 5-8 units/meal) UTD on labs. UTD DM eye exam (12/23/23 [facility]). Strive for regular exercise (30min most days) and diet (get at least 4-5 servings of fruit and veggies daily, avoid processed foods, increase lean protein intake and decrease carb portions as well as fruit juices, regular soda & desserts). Watch carbs and simple sugars. Check the blood sugar Freestyle Henry. Check the feet daily for skin breakdown and infection. Assessment & Plan (05/09/2024 7:09 PM CDT): Lab Results Component Value Date HGBA1C 7.5 01/18/2024 HGBA1C 8.2 09/21/2023 HGBA1C 8.0 06/15/2023 Managed by endocrinology. Stable; Medications: -trulicity 1.5 mg weekly -insulin novolog 30-45 units tid -insulin basaglar 46 units nightly Assessment & Plan (01/18/2024 2:23 PM CDT): Chronic problem. A1c not at goal but has improved from 8.2% 09/21/23 to now 7.5% Has greatly increased exercise. Has lowered basaglar & novolog amounts and decreased A1c. Current medications: Trulicity 1.5mg weekly--missed 4 weeks Basaglar 20-25 units daily Novolog 5 units three times daily before meals (typically 5-8 units/meal) UTD on labs. UTD DM eye exam (12/23/23 [facility]). Strive for regular exercise (30min most days) and diet (get at least 4-5 servings of fruit and veggies daily, avoid processed foods, increase lean protein intake and decrease carb portions as well as fruit juices, regular soda & desserts). Watch carbs and simple sugars. Check the blood sugar Freestyle Henry. Check the feet daily for skin breakdown and infection. Assessment & Plan (09/21/2023 1:49 PM METALLURGY TEACHER): Chronic problem. A1c not at goal and has worsened from 8.0% 06/2023 to now 8.2% To send me a message if Trulicity is too expensive. We can then try januvia (if GI testing is normal). Increase basaglar by 2 units weekly without lows during the night. Max 65 units/day. Current medications: Trulicity 0.75mg weekly x4 then increase to 1.5mg weekly Basaglar 45 units daily Novolog 25 units three times daily before meals For blood sugar over 180: take 30 units For blood sugar over 220: take 34 units For blood sugar over 260: take 36 units For blood sugar over 300: take 38 units UTD on labs. UTD on DM eye exam. Strive for regular exercise (30min most days) and diet (get at least 4-5 servings of fruit and veggies daily, avoid processed foods, increase lean protein intake and decrease carb portions as well as fruit juices, regular soda & desserts). Watch carbs and simple sugars. Check the blood sugar Freestyle Henry. Check the feet daily for skin breakdown and infection. Assessment & Plan (06/15/2023 12:02 PM METALLURGY TEACHER): Chronic problem. A1c not at goal but improved from 8.4% to now 8.0%. To let me know if he needs/wants to increase the Ozempic to 1mg pen. Increase your basaglar to 45 units instead of 40 units. Current medications: Ozempic.5mg weekly Basaglar 45 units daily Novolog 25 units three times daily before meals For blood sugar over 180: take 30 units For blood sugar over 220: take 34 units For blood sugar over 260: take 36 units For blood sugar over 300: take 38 units Strive for regular exercise (30min most days) and diet (get at least 4-5 servings of fruit and veggies daily, avoid processed foods, increase lean protein intake and decrease carb portions as well as fruit juices, regular soda & desserts). Watch carbs and simple sugars. Check the blood sugar Freestyle Henry. Check the feet daily for skin breakdown and infection. Assessment & Plan (05/04/2023 12:05 PM CDT): Following with endocrine, Dr. Jarrell. Patient is monitoring blood sugars with CGM and denies hypoglycemia episodes. Continue current medication regimen. Assessment & Plan (03/02/2023 4:17 PM CDT): Hba1c was Lab Results Component Value Date HGBA1C 8.4 03/02/2023 today, indicating inadequate DM control, but some improvement Goal Hba1c and blood glucose explained Diet and exercise were advised Prevention and treatment of hyypoglcyemia were discussed with the patient Blood glucose monitoring : start CGM with FSL Adjustment to medications: Ozempic 0.25 mg weekly, try to increase the dose, half way between 0.25 and 0.5 Take Novolog, 20 units before meals For sugars over 180, add 4 units For sugars over 220, add 6 units For sugars over 260, add 8 units For sugar over 300, add 10 units Assessment & Plan (11/24/2022 10:46 AM CDT): Chronic problem. Uncontrolled & worsening. A1c terrance from 8.3% 08/25/22 to now 9.2% intolerance to Farxiga--stopped 6 wks ago. Agreeable to adding Ozempic. Discussed insurance may not cover--may request alternative or no coverage at all. Sample given. ozempic 0.25mg weekly x2 then increase to 0.5mg weekly. Reviewed med SE & scheduling. Verified that he uses [facility] (formerly [facility] Will send [facility] [employer] message if questions or concerns. Not physically active. Discussed the need to strive for regular exercise (30min most days) and diet (get at least 4-5 servings of fruit and veggies daily, avoid processed foods, increase lean protein intake and decrease carb portions as well as fruit juices, regular soda & desserts). Watch carbs and simple sugars. Check the blood sugar 3 times per day. Check the feet daily for skin breakdown and infection. UTD on DM eye exam (11/20/22--no DMR). UTD on labs. Assessment & Plan (08/25/2022 2:13 PM METALLURGY TEACHER): Chronic, uncontrolled, worsening Importance of exercise and diet were discussed Medications , changes as follows : Stay on Farxiga, If you have another yeast penile infection, please call the office Take Basaglar, 30 units in the evening. Take Novolog 20 units before breakfast and dinner For sugars under 120, before meals , still take 12 units , if you are going to eat Assessment & Plan (04/23/2022 9:15 AM CDT): Chronic problem, improving. No medication changes. We discussed insulin adjustment if needed if he continues to lose weight. Update routine labs today. Assessment & Plan (01/15/2022 9:32 AM CDT): Chronic problem, improving. No medication changes. Samples of Farxiga today, he is in the donut hole. Work on increasing exercise. Assessment & Plan (09/30/2021 10:20 AM METALLURGY TEACHER): Hba1c was Lab Results Component Value Date HGBA1C 8.7 09/30/2021 today, indicating inadequate DM control Goal Hba1c and blood glucose explained Diet and exercise were advised Prevention and treatment of hyypoglcyemia were discussed with the patient Blood glucose monitoring : Adjustment to medications: Check your sugars before breakfast and dinner Stay on Basaglar , 30 units bedtime Novolog, 15 units before breakfast and dinner Start Farxiga, 10 mg in the morning ( 3 m worth samples provided ) Start Bydureon , 2 mg once a week ( samples provided ) If your sugars start dropping under 120, in the morning, lower Basaglar by 5 units weekly Youmight also have to lwer the Novolog Send a message via [email or web address] ,every two weeks , about your sugars. Pt to apply to [facility] patient's assistance program Assessment & Plan (07/24/2021 12:47 PM METALLURGY TEACHER): Lab Results Component Value Date HGBA1C 8.5 (H) 04/29/2021 HGBA1C 7.8 01/09/2021 HGBA1C 7.6 (A) 12/19/2020 Not well controlled. Patient follows with endocrinology. Discussed need to improve diet and resume weight loss efforts. Assessment & Plan (05/22/2021 4:21 PM CDT): Chronic condition, significantly improving with dietary changes and weight loss in last 5 weeks (last A1c checked just before he started this regimen). Encouragement given. If feasible, recommend he restart an SGLT2i given his cardiac conditions. He will check on the cost of this on his insurance when not in the donut hole and see if he can restart it. We often have samples to help when in the donut hole. For now reviewed how to continue adjusting insulin for weight loss. If going to eat a bigger meal (usually DN if so), then take a small dose aD instead of correcting, eg 4 units. Monitor FBG, if consistently <120 then stop Basaglar. Let us know if any issues with blood sugars between visits. Assessment & Plan (01/15/2021 12:56 PM CDT): A1c 7.6. Little improvement. Fasting and ac BG acceptable. Suspect that issue is mostly r/t pc excursions. Advised to check random pc BG. BG goals reviewed. Assessment & Plan (09/19/2020 3:08 PM METALLURGY TEACHER): A1c 7.7. Continues to make his own adjustments to insulin plan. Increase Jardiance to 2 tabs per day = 20 mg and will send rx for Farxiga 10 mg to see if more cost effective. Advised to schedule eye exam. Assessment & Plan (05/23/2020 3:27 PM CDT): A1c 7.9, worsening. Continues to not take his insulin according to plan despite education at [facility]. Reviewed concept of basal vs bolus insulin. Advised consistent dose of Basaglar 18 units at supper, Provided with instructions to adjust to goal of low 100's fasting. He is not to hold or adjust this based on pc dinner BG. Novolog 10 units as prandial dose with CF based on ac BG only 2:50>150. Increase Jardiance to 25 mg. Assessment & Plan (02/22/2020 12:05 PM CDT): A1c further improved to 7.2. Continue same medication plan. Assessment & Plan (11/14/2019 2:47 PM CDT): Last Hba1c was Lab Results Component Value Date HGBA1C 7.5 08/15/2019 today, indicating suboptimal DM control 1800 calorie, consistent carb diet recommended. No more than 30-45 grams of carbs per meal recommended, as well as avoiding high concentrated sweet drinks . 25-45 min daily exercise, combining both aerobic and resistance exercise recommended. The need to monitor blood glucose before meals and bedtime was discussed. Prevention and treatment of hyypoglcyemia discussed. Insulin dose: continue current regimen Continue Jardiance Assessment & Plan (08/15/2019 9:57 AM METALLURGY TEACHER): Hba1c was Lab Results Component Value Date HGBA1C 7.5 08/15/2019 today, indicating suboptimal DM control 1800 calorie, consistent carb diet recommended. No more than 30-45 grams of carbs per meal recommended, as well as avoiding high concentrated sweet drinks . 25-45 min daily exercise, combining both aerobic and resistance exercise recommended. The need to monitor blood glucose before meals and bedtime was discussed. Prevention and treatment of hyypoglcyemia discussed. Insulin dose: Continue current Start Jardiance, 10 mg daily , in a pt with CAD Assessment & Plan (05/16/2019 3:40 PM CDT): A1c improved to 7.6. FBG still above goal. Start metformin XR 500 with dinner. Will increase to 1000 if tolerating well. Increase Basaglar to 53 unit hs. Novolog 10 units ac and CF 2:50>150. Provided with instructions on how to increase each to goal. Assessment & Plan (02/14/2019 3:26 PM CDT): A1c worsening from 7.8 to 9.3. Restart metformin 1000 bid. Start with dinner dose , after dinner , for one week and then add the morning dose Take Basaglar at bedtime 25 and every 5-7 days if FBG not < 150. We will consider Trulicity in the future. Send in your blood sugar logs Advised to check with Dr. Nelson to see what he thinks about Invokana or Jardiance. Assessment & Plan (01/12/2019 9:31 AM CDT): Hold oral hypoglycemics. Continue Lantus and lispro with meals. Medium dose insulin sliding scale Assessment & Plan (01/09/2019 11:23 PM CDT): IDDM-2 Hold metformin Continue with lantus Low dose ISS - patient will be NPO after midnight Assessment & Plan (12/29/2018 5:14 PM CDT): Sugars are controlled at this time. Patient is on Lantus 10 units q.h.s. Continue with low-dose sliding scale. Assessment & Plan (12/29/2018 2:23 AM CDT): Sugars are controlled at this time. Patient is on Lantus 10 units q.h.s. Nightly which has been resumed. Will also order low-dose sliding scale. Patient may also be taking NovoLog 30 units t.i.d. Meals although it is unclear if patient is taking this. Patient seems to be unsure of the medications he is taking. Will hold for now and continue to monitor. Assessment & Plan (10/12/2018 9:19 AM CDT): A1c continues to go up. Now 7.8. He is not clear on how he is taking medication. Does not want to try metformin at reduced dose. Continue Trulicity, start Lantus 10 units. Will adjust weekly to FBG goal of 100-120. Hold Novolog for now. Send in BG log in 2 weeks and will determine Novolog plan at that time. Needs to focus on diet and exercise. Assessment & Plan (07/13/2018 3:21 PM METALLURGY TEACHER): Recent A1c 7.0 without reported hypoglycemia. No change to current medication plan. BG goals reviewed. Focus on diet and exercise. He will check with insurance re: coverage for GLP 1 after Aug 02. Assessment & Plan (11/30/2017 11:43 AM CDT): Your Hba1c today was: Lab Results Component Value Date HGBA1C 6.9 11/30/2017 meaning a 3 month average sugar of : 150 Your goal hba1c is under 7.0 to prevent long-term diabetes complications ( eye , kidney and nerve damage ) . Your goal sugars are in the 90-130 range Daily aerobic ( walking, riding a bike, swimming ) and resistance exercises ( light weight lifting, resistance band stretching ) for at least 30 minutes is recommended If you can not walk, chair exercises is very acceptable. As little as 15-20 minutes exercise , in one or two sessions a day, is still very helpful and will help to improve your diabetes control . Eat small portion meals, no more than 1800 calories Diet Try to eat not more than than 2-3 servings of carbs ( starches ) wiith your meals. Avoid soft drinks, including regular sodas , fruit juices and sweetened tea. Drink water instead. Eat plenty of green and leafy vegetables, including salads. Take your medications regularly,including your insulin injections. Monitor your sugar levels with finger sticks regularly and keep a log sheet or book. Bring your sugar meter and /or a log book or log sheet to every office visit. Assessment & Plan (05/26/2017 11:12 AM CDT): A1c 7.0. Will check creatinine and restart metformin as indicated. Continue Trulicity. Provided with specific Humalog plan. IC 10 and CF 1;50>150. Will likely need to be adjusted as appetite improves. To send in BG in 10 days. Disorder of bladder 12/16/2013 Overview (11/06/2016): BLADDER DISORDER NOS Dyslipidemia 12/16/2013 Overview (04/18/2021): LDL of 87 mg/dL on 20 September 2020. LDL of 63 mg/dL on 20 March 2021. On Lipitor 80 mg p.o. q.d.. Assessment & Plan (02/14/2019 3:27 PM CDT): Continue statin therapy Assessment & Plan (01/12/2019 9:31 AM CDT): On statin Assessment & Plan (01/09/2019 11:23 PM CDT): On statin Assessment & Plan (05/26/2017 11:12 AM CDT): Continue statin Dilated cardiomyopathy Assessment & Plan (01/12/2019 9:34 AM CDT): Stable. Patient was started on small dose of Lasix. Will be following up with Cardiology. Continue current medications Assessment & Plan (01/09/2019 11:41 PM CDT): Last echo on 12/28/2018 Conclusions: Normal left ventricular wall thickness. Left ventricle cavity is within upper limits of normal. Moderate global left ventricular systolic dysfunction. Normal left ventricular diastolic function. Ejection fraction is visually estimated at 30 %. Estimated peak RVSP is 42-47 mmHg. Trivial regurgitation in the tricuspid valve. Continue with lifevest Telemetry monitoring Will hold eliquis today in anticipation of planned cardiac cath in a.m. Resolved Problems Problem Noted Date Diagnosed Date Resolved Date BMI 33.0-33.9,adult 08/13/2020 08/13/19 21 Encounters Date Type Department Care Team Description 01/11/2025 Orders Only [facility] [address] [place] [address] Misbah Muniz MD 01/11/2025 Orders Only [facility] Diabetes and Endocrinology [address] [place] [phone] ProviderMary Jo MD 01/04/2025 11:30 AM CDT Office Visit [facility] [address] [place] [phone] Bianca Sotelo NP Lung nodules (Primary Dx); Prostate irregularity; Class 1 obesity due to excess calories without serious comorbidity with body mass index (BMI) of 32.0 to 32.9 in adult 01/04/2025 Telephone [facility] Diabetes and Endocrinology [address] [place] [phone] Ludy Hayes NP [place] 01/03/2025 9:30 AM CDT Office Visit [facility] Diabetes and Endocrinology [address] [place] [phone] Ludy Hayes NP Type 2 diabetes mellitus with hyperglycemia, with long-term current use of insulin (HCC) (Primary Dx); Hypertension associated with diabetes (HCC); Hyperlipidemia associated with type 2 diabetes mellitus (HCC) 12/29/2024 11:00 AM CDT Office Visit [facility] Orthopedic and Sports Medicine [address] [place] [phone] Demond Biggs MD Rotator cuff arthropathy of right shoulder (Primary Dx) 12/29/2024 Orders Only [facility] Orthopedic [facility] Sports Medicine [address] [place] [phone] Demond Biggs MD Rotator cuff arthropathy of right shoulder (Primary Dx); Arthrosis of right acromioclavicular joint 12/19/2024 9:00 AM CDT Office Visit [address] [place] [phone] Kumar Jones MD Lipoma of right shoulder 12/12/2024 8:30 AM CDT Office Visit [facility] [address] [phone] Bianca Sotelo NP Type 2 diabetes mellitus with hyperglycemia, with long-term current use of insulin (HCC) (Primary Dx); Chronic systolic congestive heart failure (HCC); Current moderate episode of major depressive disorder without prior episode (HCC); Coronary artery disease involving [place] coronary artery of [place] heart without angina pectoris; Prostate irregularity; Bradycardia; Chronic right shoulder pain; Hyperlipidemia associated with type 2 diabetes mellitus (HCC); Class 1 obesity due to excess calories without serious comorbidity with body mass index (BMI) of 32.0 to 32.9 in adult 11/17/2024 10:45 AM CDT - 11/17/2024 11:59 PM CDT Hospital Encounter [facility] [address] [facility] [address] [place] [address] Natasha Abdalla NP Spondylosis of lumbar region without myelopathy or radiculopathy (Primary Dx); Cervicalgia Discharge Disposition: Discharge to home or self care 11/16/2024 Orders Only [facility] [address] [phone] Misbah Muniz MD 11/16/2024 Telephone [facility] Diabetes and Endocrinology [address] [place] [phone] Ludy Hayes NP Med Management (Novolog) 11/15/2024 10:30 AM CDT Office Visit [facility] Orthopedic and Sports Medicine [address] [place] [phone] Rajendra Gooden PA Lipoma of extremity (Primary Dx); Arthrosis of right acromioclavicular joint 11/14/2024 10:15 AM CDT Lab [facility] [address] [place] [phone] Muscle cramping 11/14/2024 7:00 AM CDT Office Visit [facility] [address] [phone] Jessica Crawley NP Muscle cramping (Primary Dx); Acute right ankle pain; Class 1 obesity without serious comorbidity with body mass index (BMI) of 32.0 to 32.9 in adult, unspecified obesity type 11/14/2024 Results Follow-Up [facility] [address] [phone] Jessica Crawley NP Magnesium, Comprehensive metabolic panel, eGFR 11/10/2024 Results Follow-Up [facility] Orthopedics and Sports Medicine [address] [facility] [address] [place] [address] Rajendra Gooden PA MRI Shoulder Right WO Contrast 11/08/2024 6:25 AM CDT - 11/08/2024 11:59 PM CDT Hospital Encounter [facility] [address] [place] [address] Arthrosis of right acromioclavicular joint; Rotator cuff arthropathy of right shoulder Discharge Disposition: Discharge to home or self care from Last 3 Months Immunizations Immunization Administration Dates Next Due Influenza, Quadrivalent, Hig h Dose, Preservative Free, Intrr 05/04/2022,05/08/2021,04/30/2020 Influenza, Quadrivalent, Spl it, Preservative Free, Intramuscular 07/07/2023,05/04/2019,05/02/2018,05/01,04/28/2017,09/08/2016,05/02/2015 ,05/16/2013 Influenza, Trivalent, High D ose, Split, Preservative Free, Intramuscular 05/09/2024 Influenza, Trivalent, IM (MDV) 04/23/2014,2012 Influenza, Trivalent, Preser vative Free, Intramuscular 09/08/2016,06/19/2015 Influenza, Unspecified 05/04/2023(Deferr ed: Patient Refused),05/02/2023,05/02/2021, 021(Deferred: Patient Refused),04/21/2021(Deferred: Patient Refused),04/29/2018,04/08/2018(Deferre d: Patient Refused) Moderna SARS-CoV-2 Monovalen t Vaccination (12+ YRS) 06/11/2021 Pfizer SARS-CoV-2 Monovalent Vaccination (12+ Yrs) PURPLE 10/15/2020,09/17/2020 Pneumococcal Conjugate PCV 13 07/04/2018 Pneumococcal Polysaccharide PPV23 04/30/2020 RSV Vaccine, Pref, Recombina nt, Subunit, Adjuvanted, PF, IM (Arexvy) 07/07/2023 Sars-CoV-2, Unspecified 10/15/2020,09/17/2020 Tdap 05/08/2014,04/23/2014 ZOSTER Recombinant 06/16/2022 Surgical History Surgery Date Site/Laterality Comments BACK SURGERY 08/02/1972 - 08/01/1973 Back surgery APPENDECTOMY Appendectomy ROTATOR CUFF REPAIR 08/02/2016 - 08/01/2017 right rotator cuff surgery APPENDECTOMY 08/02/2007 - 08/01/2008 Appendectomy BACK SURGERY 08/02/1972 - 08/01/1973 Back surgery LIPOMA RESECTION 01/21/2017 Left Exc R shoulder lipoma CHOLECYSTECTOMY 08/02/2016 - 08/01/2017 Laparoscopic Cholecystectomy CARDIAC CATHETERIZATION 12/31/2018 - 01/29/2019 x 3 stents LASER OF PROSTATE W/ GREEN LIGHT PVP CORONARY ANGIOPLASTY WITH STENT PLACEMENT 2020 OTHER SURGICAL HISTORY heart stent Medical History Medical History Date Comments Hypertension hypertension Anxiety disorder anxiety Hyperlipidemia Hyperlipidemia Diabetes mellitus (HCC) Diabetes Hx Other Medical Diaherra Hx Other Medical Disc removal Hx Other Medical trigger finger R hand; Comments: CAROLYN 08/29/2014 - Complete tear of left rotator cuff Complete torn rotator cuff; Comments: BS 11/12/2016 - 09/23/2016 Dr Dian PULIDO Atrial fibrillation (HCC) Hematuria Erectile dysfunction Coronary artery disease Cardiac Stents x 3 Enlarged prostate Enlarged prostate laser ablation Type 2 diabetes mellitus (HCC) Family History Medical History Relation Name Comments Other Brother 2 Alive and well; Prostate cancer Father Cancer, pros olson; Breast cancer Mother Cancer, breast ; /Cancer, breast; Cancer Mother thyroid, breast Coronary artery disease Mother Gabriel nary artery disease; Hypertension Mother Hypertension; Thyroid disease Mother Thyroid diso rder; /Thyroid disorder; Alcohol abuse Other 1 Family history of Alcoholism; Diabetes Other 2 Family history of Diabetes mellitus; Relation Name Status Comments Brother 1 Alive Brother 2 Father Mother Other 1 Other 2 Social History Tobacco Use Types Packs/Day Years Used Date Smoking Tobacco: Former Cigarettes Q uit: 1975 Smokeless Tobacco: Former Chew Tobacco Cessation:Counseling Given: Not Answered Comments:Smoking History Packs/day: 1 ppd x 1 year. Alcohol Use Standard Drinks/Week Comments No 0 (1 standard drink = 0.6 oz pur e alcohol) [facility] Utilities Answer Date Recorded In the past 12 months has [employer], oil, or water [employer] threatened to shut off services in your home? No 09/26/2024 Social Connection and Isolat ion Panel [NHANES] Answer Date Recorded In a typical week, how many times do you talk on the phone with family, friends, or neighbors? More than three times a week 09/26/2024 How often do you get togethe r with friends or relatives? Once a week 09/26/2024 How often do you attend chur ch or methodist services? More than 4 times per year 09/26/2024 Do you belong to any clubs o r organizations such as methodist groups, unions, fraternal or athletic groups, or school groups? Yes 09/26/2024 How often do you attend meet ings of the clubs or organizations you belong to? More than 4 times per year 09/26/2024 Are you , , di vorced, , never , or living with a partner? 09/26/2024 AUDIT-C Answer Date Recorded Q1: How often do you have a drink containing alcohol? Never 01/24/2025 Q2: How many drinks containi ng alcohol do you have on a typical day when you are drinking? Patient does not drink Q3: How often do you have si x or more drinks on one occasion? Never 01/24/2025 Overall Financial Resource Strain (CARDIA) Answe r Date Recorded How hard is it for you to pa y for the very basics like food, housing, medical care, and heating? Not very hard 09/26/2024 PHQ-2 Answer Date Recorded PHQ-2 Total Score (If total score is 3 or more points, staff should administer the PHQ-9) 2 01/04/2025 Hunger Vital Sign Answer Date Recorded Within the past 12 months, y ou worried that your food would run out before you got the money to buy more. Never true 09/26/19 Within the past 12 months, t he food you bought just didn't last and you didn't have money to get more. Never true 09/26/2024 PRAPARE - Transportation Answer Date Re corded In the past 12 months, has l ack of transportation kept you from medical appointments or from getting medications? No 09/03 In the past 12 months, has l ack of transportation kept you from meetings, work, or from getting things needed for daily living? No 09/26/2024 PHQ-9 Answer Date Recorded PHQ-9 Total Score 5 08/03/2024 Housing Stability Vital Sign Answer Aguila e Recorded In the last 12 months, was t here a time when you were not able to pay the mortgage or rent on time? No 09/26/2024 In the past 12 months, how m any times have you moved where you were living? 0 09/26/2024 At any time in the past 12 m [facility], were you homeless or living in a residential (including now)? No 09/26/2024 Personal Safety Answer Date Recorded Have you ever been in or are you currently in a harmful physical or emotional relationship or is someone making you feel afraid or unsafe? 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 Not on file Not on file Obstetrics History Last Filed Vital Signs Vital Sign Reading Time Taken Comments Blood Pressure 104/66 01/04/2025 11:26 AM CDT Pulse 53 01/04/2025 11:26 AM CDT Temperature 36.4 C (97.6 F) 01/04/2025 11:26 AM CDT Respiratory Rate 18 01/04/2025 11:26 AM CDT Oxygen Saturation 97% 01/04/2025 11:26 AM CDT Inhaled Oxygen Concentration - - Weight 107 kg (236 lb) 01/04/2025 11:26 AM CDT Height 182.9 cm (6' 0.01) 01/04/2025 11:26 AM C DT Body Mass Index 32 01/04/2025 11:26 AM CDT Plan of Treatment Upcoming Encounters Date Type Department Care Team (Latest Contact Info) Description 02/05/2025 10:00 AM CDT Hospital Encounter [facility] Operating Room 1 [place] [address] Kumar Jones MD [address] [place] [address] [place] [address] 02/05/2025 10:00 AM CDT Anesthesia Event [facility] Operating Room 1 [place] [address] Khai Tapia MD 1 [facility] [place] [address] 02/05/2025 10:00 AM CDT - 02/05/2025 11:00 AM CDT Surgery [facility] Operating Room 1 [place] [address] Kumar Jones MD [address] [facility] [place] [address] EXCISION RIGHT SHOULDER MASS Scheduled Procedures Name Priority Associated Diagnoses Date/Ti me EXCISION SOFT TISSUE MASS Lipoma of right shoulder 02/05/2025 10:00 AM CDT Health Maintenance Due Date Last Done Comments Hepatitis C Screening 1955 Hepatitis B Screening 1971 Zoster Vaccine (2 of 2) 08/11/2022 06/16/2022 Covid-19 Vaccine (2023-2 5 season) 2024 06/11/2021, 06/11/2021, 10/15/2020, Additional history exists DTaP/Tdap/Td Vaccine (3 - Td or Tdap) 05/08/2024 05/08/2014, 04/23/2014 Influenza Vaccine (#1) 2025 , 07/07/2023, 05/02/2023, Additional history exists Albumin Creatinine Ratio, Urine 05/09/2025 05/09/2024, 05/04/2023, 05/18/2022, Additional history exists Well Visit 65+ 05/09/2025 05/09/2024, 1009/2022, 05/04/2022, Additional history exists Hemoglobin A1C 06/14/2025 12/12/2024, 020 12/2024, 05/22/2024, Additional history exists Colon Cancer Screening-Colonoscopy 08/20/2025 08/20/2015, 11/12/2014, 11/12/2014, Additional history exists eGFR 11/14/2025 11/14/2024, 2 10/2024, 09/24/2024, Additional history exists Lipid Panel 12/12/2025 12/12/2024, 03/2024, 05/04/2023, Additional history exists Foot Exam 01/03/2026 01/03/2025, 05/03, 03/02/2023, Additional history exists Depression Screening 01/04/2026 01/04/2025, 12/12/2024, 08/03/2024, Additional history exists Fall Risk Assessment 01/04/2026 01/04/2025, 12/12/2024, 09/25/2024, Additional history exists Prostate Cancer Screening-PSA 10/04/2026, 05/04/2023, 05/18/2022, Additional history exists Dilated Eye Exam 12/26/2026 12/26/2024, , 12/23/2023, Additional history exists Colon Cancer Screening-CT Colonography Discontinued 08/20/2015, 11/12/2014, 11/12/2014, Additional history exists Colon Cancer Screening-DNA Stool Discontinued 08/20/2015, 11/12/2014, 11/12/2014, Additional history exists Colon Cancer Screening-FIT Discontinued 08/20, 11/12/2014, 11/12/2014, Additional history exists Colon Cancer Screening-Sigmoidoscopy Discontinued 08/20/2015, 11/12/2014, 11/12/2014, Additional history exists Pneumococcal vaccine 65+ Completed 04/30/2020, 09/2017 Abdominal Aortic Aneurysm (A AA) Screen Completed 09/21/2024, 05/18/2017, 03/10/2017 Medical Devices Implanted Type Area Inspector [employer] Wafer Device Identifier Shelf Expiration Date Model / Serial / Lot [employer] [id number] Synergy 2.75mm 12mm 144cm Radiopaque 1 Access Port Inflation - [id number] Implanted:Qty: 1 on 01/10/2019 by Karri Courtney MD at [facility] Stent [employer] 04/19/2020 [id number] 270 / / [id number] [employer] [id number] Synergy 3.5mm 24mm 144cm Radiopaque 1 Access Port Inflation Lumen - [id number] Implanted:Qty: 1 on 01/10/2019 by Karri Courtney MD at [facility] Stent [employer] 05/22/2020 [id number] 350 / / [id number] [employer] [id number] Synergy 2.75mm 20mm 144cm Radiopaque 1 Access Port Inflation - [id number] Implanted:Qty: 1 on 01/10/2019 by Karri Courtney MD at [facility] [employer]ent [employer] 04/13/2020 [id number] 270 / / [id number] [employer] [id number] Angio-Seal Evolution 6fr .035in Guidewire Bypass Tube Suture - [id number] Implanted:Qty: 1 on 01/10/2019 by Karri Courtney MD at [facility] [employer] 09/30/2019 [id number] / / Procedures Procedure Name Priority Date/Time Associated Diagnosis Comments CARDIOLOGY DOCUMENT SCAN 01/11/2025 POCT GLUCOSE Routine 01/03/2025 9:29 AM CDT Type 2 diabetes mellitus with hyperglycemia, with long-term current use of insulin (HCC) NE CARDIAC BLOOD POOL IMAGING (REST) Schedule Routine, Read Routine (OP Routine) 01/01/2025 9:30 AM CDT DIABETES EYE EXAM Routine 12/26/2024 12:43 PM CDT DIABETES EYE EXAM Routine 12/26/2024 7:35 AM CDT POCT HEMOGLOBIN A1C Routine 12/12/2024 8:20 AM CDT Type 2 diabetes mellitus with hyperglycemia, with long-term current use of insulin (HCC) POCT LIPID PANEL Routine 12/12/2024 8:20 AM CDT Hyperlipidemia associated with type 2 diabetes mellitus (HCC) [place] ARTHROCENTESIS ASPIR&/INJ INTERM JT/BURS W/US Routine 11/15/2024 10:30 AM CDT Arthrosis of right acromioclavicular joint EGFR Routine 11/14/2024 10:13 AM CDT Muscle cramping COMPREHENSIVE METABOLIC PANEL Routine 11/14/2024 10:13 AM CDT Muscle cramping MAGNESIUM Routine 11/14/2024 10:13 AM CDT Muscle cramping MRI SHOULDER RIGHT WO CONTRAST Schedule Routine, Read Routine (OP Routine) 11/08/2024 7:44 AM CDT Arthrosis of right acromioclavicular joint Rotator cuff arthropathy of right shoulder PSA SCREEN Routine 10/04/2024 11:02 AM METALLURGY TEACHER Urinary retention CT ABDOMEN PELVIS W CONTRAST ED 09/21/2024 2:06 AM METALLURGY TEACHER ALBUMIN CREATININE RATIO, URINE Routine 05/09/2024 9:46 AM CDT Hypertension associated with diabetes (HCC) Chronic systolic congestive heart failure (HCC) Hyperlipidemia associated with type 2 diabetes mellitus (HCC) Coronary artery disease of [place] artery of [place] heart with stable angina pectoris Type 2 diabetes mellitus with hyperglycemia, with long-term current use of insulin (HCC) COLONOSCOPY Routine 08/20/2015 from Last 3 Months or Most Recently Relevant to Health Maintenance Results * Cardiology Document Scan (01/11/2025) Anatomical Region Laterality Modality Other us Misbah Muniz MD CV CARDIAC SERVICES [facility] Final Result * (ABNORMAL) POCT glucose (01/03/2025 9:29 AM CDT) Pathologist [facility] Glucose Blood, POC 181 Normal Fasting 70 - 100, Random <200 mg/dL Blood 01/03/2025 9:29 AM CDT us Ludy Hayes NP POINT OF CARE TEST ORDERA BLES Final Result * NM Cardiac Blood Pool Imaging (Rest) (01/01/2025 9:30 AM CDT) Anatomical Region Laterality Modality Body N/A Nuclear Medicine us Generic External Data Provider IMG NM PROCEDURES Final Result * (ABNORMAL) DIABETES EYE EXAM (12/26/2024 12:43 PM CDT) SCRIBED DIABETIC DILATED EYE EXAM Abnormal Historical Provider HEALTH MAINTENANCE Final Result * DIABETES EYE EXAM (12/26/2024 7:35 AM CDT) Historical Provider HEALTH MAINTENANCE Edited Result - Final * (ABNORMAL) POCT hemoglobin A1c (12/12/2024 8:20 AM CDT) Hemoglobin A1C, POC 8.4(A) 4.0 - 5.6 % Capillary blood 12/12/2024 8 :20 AM CDT Bianca Sotelo NP POINT OF CARE TEST ORDERABL ES Final Result * (ABNORMAL) POCT lipid panel (12/12/2024 8:20 AM CDT) Cholesterol, POC 139 <200 MG/DL Comment:RHr=785 HDL, POC 37(A) >=40 mg/dL Triglycerides, POC 117 <=149 mg/dL LDL Cholesterol POC 78 <=129 mg/dL Chol/HDL Ratio, POC 3.7 NONE Non-HDL Cholesterol, POC 101 NONE mg/dL Cholesterol Total, POC 139 30 - 199 mg/dL Capillary blood 12/12/2024 8 :20 AM CDT Bianca Sotelo NP POINT OF CARE TEST ORDERABL ES Final Result * W[place] ARTHROCENTESIS ASPIR&/INJ INTERM JT/BURS W/US (11/15/2024 10:30 AM CDT) Narrative Rajendra Gooden PA - 11/15/2024 10:30 AM CDT Rajendra Gooden PA 11/15/2024 11:37 AM Medium Joint (Ankle, Elbow, Shoulder (AC), Wrist) Injection: R acromioclavicular Performed by: Rajendra Gooden PA Authorized by: Rajendra Gooden PA Medium Joint Injection/Aspiration: Consent Given by: Patient Site marked: the procedure site was marked Timeout: prior to procedure the correct patient, procedure, and site was verified Verbal consent obtained?: Yes Supporting Documentation: Indications: Pain and diagnostic evaluation Procedure Details: Location: Shoulder Site: R acromioclavicular Prep: patient was prepped and draped in usual sterile fashion Needle Size: 25 G Approach: Superior Ultrasound guidance: Yes Ultrasound guidance used fot: Pre-procedure marking and real-time guidance Sterile ultrasond techniques: Sterile gel and sterile probe covers were used U;trasound note: The R AC joint was identified with ultrasound visualization with the patient was positioned properly. Lipoma was noted superior to the joint. The needle was then guided into the right AC joint under ultrasound guidance. Medication was administered under direct visualization. Medications: 0.5 mL lidocaine 20 mg/mL (2 %); 40 mg methylPREDNISolone acetate 40 mg/mL Patient tolerance: Patient tolerated the procedure well with no immediate complications us Rajendra GARCIA IN CLINIC/BEDSIDE ORDERABLE S Final Result * eGFR (11/14/2024 10:13 AM CDT) eGFR >90 >=60 mL/min/1. 73 m2 Comment: Interpretive Data Reference Interval Normal >/= 90 mL/min/1.73m2 Mildly decreased* 60 - 89 mL/min/1.73m2 Mildly to moderately decreased 45 - 59 mL/min/1.73m2 Moderately to severely decreased 30 - 44 mL/min/1.73m2 Severely decreased 15 - 29 mL/min/1.73m2 Kidney Failure < 15 mL/min/1.73m2 *Relative to young adult level Estimated glomerular filtration rate is determined by the 2020 CKD-EPI equation recommended by the National Kidney Foundation (A Unifying Approach to GFR Estimation: Recommendations of the NKF-ASK Task Force on Reassessing the Inclusion of Race in Diagnosing Kidney Disease, JASN 2020). The CKD-EPI equation should not be used for patients with unstable renal function and has not been validated in children and those over 70. Current interpretive data was last reviewed 2021. Testing performed by: [facility], [address] [place] [address], [place]., [address] Blood 11/14/2024 10:1 3 AM CDT 11/14/2024 2:04 PM CDT Jessica Crawley MANAGEMENT INSTRUCTOR LAB BLOOD ORDERABLES Final Re sult Performing Organization Address [facility] de Phone Number KATHI SIMONS (RADU) [address] [place] [address] * Magnesium (11/14/2024 10:13 AM CDT) Magnesium 1.9 1.4 - 2.5 mg/dL Comment:Testing performed by : [facility], [address] [place] [address], [id number] Blood 11/14/2024 10:1 3 AM CDT 11/14/2024 1:54 PM CDT Jessica Crawley MANAGEMENT INSTRUCTOR LAB BLOOD ORDERABLES Final Re sult Performing Organization Address [facility] de Phone Number KATHI SIMONS ([facility]) [address] [place] [address] * (ABNORMAL) Comprehensive metabolic panel (11/14/2024 10:13 AM CDT) Sodium 140 135 - 145 mmol/L Comment:Testing performed by : [facility], [address] [place] [address], [id number] Potassium, pl 4.7 3.3 - 4.9 mmol/L [facility] ([facility]) Comment:Testing performed by : [facility], [address] [place] [address]., [phone] Chloride 103 97 - 110 mmol/L [facility] ([facility]) Comment:Testing performed by : [facility], [address] [place] [address], [id number] CO2 29 22 - 32 mmol/L [facility] ([facility]) Comment:Testing performed by : [facility], [address] [place] [address], [id number] Anion gap 8 2 - 15 mmol/L [facility] ([facility]) Comment:Testing performed by : [facility], [address] [place] [address]., [id number] BUN 18 6 - 25 mg/dL [facility] ([facility]) Comment:Testing performed by : [address] [address] Creatinine 0.73(L) 0.80 - 1.30 mg/dL [facility] ([facility]) Comment:Testing performed by : [address], [address] Glucose 184 70 - 199 mg/dL [facility] ([facility]) Comment: Interpretive Data Fasting glucose >/= 126 mg/dl is diagnostic for diabetes. Fasting is defined as no caloric intake for at least 8 hours. Fasting glucose between 100 mg/dl to 125 mg/dl is diagnostic of prediabetes. In a patient with classic symptoms of hyperglycemia or hyperglycemic crisis, a random glucose >/= 200 mg/dl is diagnostic for diabetes. In the absence of unequivocal hyperglycemia, results should be confirmed by repeat testing. The classification and Diagnosis of Diabetes Diabetes Care 2021; 46: S19-S40. Current interpretive data was last revised 2022. Testing performed by: [address] [address] Calcium 9.4 8.5 - 10.3 mg/dL [facility] ([facility]) Comment:Testing performed by : [address] [address] Bilirubin, total 1.2 0.1 - 1.2 mg/dL [facility] ([facility]) Comment:Testing performed by : [address] [address] Protein, pl 6.7 6.5 - 8.5 g/dL [facility] ([facility]) Comment:Testing performed by : [address], [address] Albumin 4.0 3.5 - 5.0 g/dL [facility] ([facility]) Comment:Testing performed by : [address], [address] Alk phos 89 40 - 130 Units/L [facility] ([facility]) Comment:Testing performed by : [address], [address] ALT 51 7 - 55 Units/L [facility] ([facility]) Comment:Testing performed by : [facility], [address] [place] [address]., [id number] AST 24 10 - 50 Units/L KATHI SIMONS (RADU) Comment:Testing performed by : [facility], [address] [place] [address]., [id number] Blood 11/14/2024 10:1 3 AM CDT 11/14/2024 1:54 PM CDT us Jessica Crawley MANAGEMENT INSTRUCTOR LAB BLOOD ORDERABLES Final Re sult KATHI KRISTYN ([place]) 1 [facility] Department [place] [address] * MRI Shoulder Right WO Contrast (11/08/2024 7:44 AM CDT) Anatomical Region Laterality Modality Upper Extremities Right Magnetic Reson ance 11/09/2024 2:31 PM CDT Narrative 11/09/2024 2:53 PM CDT EXAM DESCRIPTION: MRI SHOULDER RIGHT WO CONTRAST REASON FOR STUDY: Right shoulder pain Shoulder pain x 6 months, no injury or trauma, HX rotator cuff surgery 2015 TECHNIQUE: Multiplanar, multisequence MRI of the right shoulder was performed without contrast. COMPARISON: Right shoulder MRI 02/27/2016, right shoulder radiographs 10/30/2024 FINDINGS: Bones and Joint: Moderate acromioclavicular osteoarthritis. Type 2 acromion. No acute fracture. There is mild glenohumeral chondrosis. There is postsurgical change. Small glenohumeral joint effusion. Rotator Cuff: Previous rotator cuff repair. There is significant thickening and signal heterogeneity of the anterior infraspinatus tendon indicating tendinosis. There is partial-thickness intrasubstance tear of the anterior distal infraspinatus tendon at the footprint. No full-thickness re-tear is seen. Biceps Tendon: The long head of biceps tendon is seen extra-articularly although not seen intra-articularly, likely due to tenodesis. Labrum: Inadequately evaluated without intraarticular contrast administration. Bursa: No significant thickening of the subacromial-subdeltoid bursa. Other: The suprascapular notch and quadrilateral space appear normal. Normal rotator cuff musculature volume. There is a subcutaneous lipoma over the acromion measuring about 2.1 x 4.8 x 5.5 cm. IMPRESSION: Previous rotator cuff repair. Infraspinatus tendinosis and partial-thickness intrasubstance tear. No full-thickness re-tear is seen. The long head of biceps tendon is not seen intra-articularly, likely due to tenodesis. If there is no such history this could alternatively be due to tear. THIS IS AN ELECTRONICALLY VERIFIED FINAL REPORT 11/09/2024 2:53 PM - Electronically signed by Oz Rivero M.D. JR: Report ID: [id number] Reading Location: [id number] Procedure Note Oz Rivero MD - 11/09/2024 EXAM DESCRIPTION: MRI SHOULDER RIGHT WO CONTRAST REASON FOR STUDY: Right shoulder pain Shoulder pain x 6 months, no injury or trauma, HX rotator cuff [id number] TECHNIQUE: Multiplanar, multisequence MRI of the right shoulder was performed without contrast. COMPARISON: Right shoulder MRI 02/27/2016, right shoulder radiographs 10/30/2024 FINDINGS: Bones and Joint: Moderate acromioclavicular osteoarthritis. Type 2 acromion. No acute fracture. There is mild glenohumeral chondrosis.There is postsurgical change. Small glenohumeral joint effusion. Rotator Cuff: Previous rotator cuff repair. There is significantthickening and signal heterogeneity of the anterior infraspinatus tendon indicating tendinosis. There is partial-thickness intrasubstance tear of theanterior distal infraspinatus tendon at the footprint. No full-thickness re-tearis seen. Biceps Tendon: The long head of biceps tendon is seen extra-articularly although not seen intra-articularly, likely due to tenodesis. Labrum: Inadequately evaluated without intraarticular contrastadministration. Bursa: No significant thickening of the subacromial-subdeltoid bursa. Other: The suprascapular notch and quadrilateral space appear normal.Normal rotator cuff musculature volume. There is a subcutaneous lipoma over the acromion measuring about 2.1 x 4.8 x 5.5 cm. IMPRESSION: Previous rotator cuff repair. Infraspinatus tendinosis andpartial-thickness intrasubstance tear. No full-thickness re-tear is seen. The long head of biceps tendon is not seen intra-articularly, likely dueto tenodesis. If there is no such history this could alternatively be due to tear. THIS IS AN ELECTRONICALLY VERIFIED FINAL REPORT 11/09/2024 2:53 PM - Electronically signed by Oz Rivero M.D. JR: Report ID: [id number] Reading Location: [place] [address] us Rajendra GARCIA IMGeorgie MRI PROCEDURES Final Re sult * PSA screen (10/04/2024 11:02 AM METALLURGY TEACHER) PSA-Total 4.82 <=6.20 ng/mL Comment: Interpretive Data AGE SEX REFERENCE INTERVAL 0 minutes-150 years Female None 0 minutes-49 years Male None 50-59 years Male 0-3.90 60-69 years Male 0-5.40 70-79 years Male 0-6.20 80-150 years Male 0-6.20 The Yanira PSA Total assay procedure was used. Results from different manufacturers or methods may not be comparable. Serial testing should be performed using the same method. Current interpretive data last revised 21. Testing performed by: [facility], [address] [place] [address], [place]., [address] Blood 10/04/2024 11:0 2 AM METALLURGY TEACHER 10/04/2024 6:41 PM METALLURGY TEACHER us Misbah Muniz MD LAB BLOOD ORDERABLES Linda freitas Result KATHI SIMONS [place]) 0 [facility] Department [place] [address] * CT Abdomen Pelvis W Contrast (09/21/2024 2:06 AM METALLURGY TEACHER) Anatomical Region Laterality Modality Body N/A Computed Tomogra phy 09/21/2024 2:58 AM METALLURGY TEACHER Narrative 09/21/2024 3:03 AM METALLURGY TEACHER EXAM DESCRIPTION: CT ABDOMEN PELVIS W CONTRAST REASON FOR STUDY: Abdominal pain, acute, nonlocalized, Pain c/o left flank pain for about four days, pt states it's a sharp stabbing pain. Hx of cholecystectomy, appendectomy, back surgery, DM, HTN TECHNIQUE: CT scan of the abdomen and pelvis performed with intravenous and without oral contrast using helical scanning technique with dynamic intravenous contrast injection. Reconstructed coronal and sagittal MPR images reviewed. All images stored on PACS. Automated exposure control was used as a dose optimization technique for this examination. CONTRAST TYPE/DOSE: 100mL of IOVERSOL 350 MG IODINE/ML INTRAVENOUS SYRINGE injected via intravenous COMPARISON: CT of the abdomen and pelvis of May 23, 2019. FINDINGS: LOWER CHEST: There is bibasilar atelectasis. LIVER: The visualized liver is normal in attenuation without focal lesion. Dome of the liver is not entirely included on this exam. GALLBLADDER: Surgically absent. BILE DUCTS: No intrahepatic or extrahepatic ductal dilatation. PANCREAS: Normal. SPLEEN: Normal size. No focal lesions. ADRENALS: Normal. KIDNEYS/URINARY TRACT: No identified significant cystic or solid masses. Contrast is excreted into the collecting system, limiting evaluation for renal stones. No hydronephrosis or hydroureter. Urinary bladder is unremarkable. VASCULATURE: There is moderate atherosclerosis of the aorta and its pelvic branches. GI: The stomach appears normal. There is no significant small bowel dilation or visible thickening. No gross colonic abnormalities identified. The appendix is not visualized, however, there are no pericecal inflammatory changes seen to suggest appendicitis. PERITONEUM/MESENTERY: No ascites or free air. LYMPH NODES: There are no enlarged lymph nodes seen by CT size criteria. REPRODUCTIVE: The prostate is enlarged, measuring 4.9 x 4.3 cm. The prostate gland impinges on the bladder base. The seminal vesicles are unremarkable. MUSCULOSKELETAL: Multilevel degenerative changes are present in the spine. No acute bony abnormalities are seen. OTHER: No other abnormality. IMPRESSION: No acute intra-abdominal or pelvic abnormality seen. Enlarged prostate gland. Recommend correlation for partial bladder outlet obstructive symptoms. Atherosclerosis. Degenerative change in the spine. THIS IS AN ELECTRONICALLY VERIFIED FINAL REPORT 09/21/2024 3:03 AM - Electronically signed by Dulce Amato M.D. SN: Report ID: [id number] Reading Location: [id number] Procedure Note Dulce Amato MD - 09/21/2024 EXAM DESCRIPTION: CT ABDOMEN PELVIS W CONTRAST REASON FOR STUDY: Abdominal pain, acute, nonlocalized, Pain c/o left flank pain for about four days, pt states it's a sharp stabbingpain. Hx of cholecystectomy, appendectomy, back surgery, DM, HTN TECHNIQUE: CT scan of the abdomen and pelvis performed with intravenousand without oral contrast using helical scanning technique with dynamic intravenous contrast injection. Reconstructed coronal and sagittal MPRimages reviewed. All images stored on PACS. Automated exposure control was usedas a dose optimization technique for this examination. CONTRAST TYPE/DOSE: 100mL of IOVERSOL 350 MG IODINE/ML INTRAVENOUSSYRINGE injected via intravenous COMPARISON: CT of the abdomen and pelvis of May 23, 2019. FINDINGS: LOWER CHEST: There is bibasilar atelectasis. LIVER: The visualized liver is normal in attenuation without focallesion. Dome of the liver is not entirely included on this exam. GALLBLADDER: Surgically absent. BILE DUCTS: No intrahepatic or extrahepatic ductal dilatation. PANCREAS: Normal. SPLEEN: Normal size. No focal lesions. ADRENALS: Normal. KIDNEYS/URINARY TRACT: No identified significant cystic or solid masses. Contrast is excreted into the collecting system, limiting evaluation forrenal stones. No hydronephrosis or hydroureter. Urinary bladder isunremarkable. VASCULATURE: There is moderate atherosclerosis of the aorta and itspelvic branches. GI: The stomach appears normal. There is no significant small bowel dilation or visible thickening. No gross colonic abnormalitiesidentified. The appendix is not visualized, however, there are no pericecalinflammatory changes seen to suggest appendicitis. PERITONEUM/MESENTERY: No ascites or free air. LYMPH NODES: There are no enlarged lymph nodes seen by CT size criteria. REPRODUCTIVE: The prostate is enlarged, measuring 4.9 x 4.3 cm. Theprostate gland impinges on the bladder base. The seminal vesicles areunremarkable. MUSCULOSKELETAL: Multilevel degenerative changes are present in thespine. No acute bony abnormalities are seen. OTHER: No other abnormality. IMPRESSION: No acute intra-abdominal or pelvic abnormality seen. Enlarged prostate gland. Recommend correlation for partial bladderoutlet obstructive symptoms. Atherosclerosis. Degenerative change in the spine. THIS IS AN ELECTRONICALLY VERIFIED FINAL REPORT 09/21/2024 3:03 AM - Electronically signed by Dulce Amato M.D. SN: SN Report ID: [id number] Reading Location: [place] [address] Evelyn Byres MD IMG CT PROCEDURES F inal Result * Albumin Creatinine Ratio, Urine (05/09/2024 9:46 AM CDT) Albumin Ur <12.0 mg/L Comment: Interpretive Data No reference range established. Current interpretive data was last revised 2018. Testing performed by: [address] [address] Creatinine Ur 80.1 mg/dL KATHI SIMONS (RAD[facility]) Comment: Interpretive Data No reference range established. Current interpretive data was last revised 2018. Testing performed by: [address] [address] Albumin Creatinine Ratio, Ur <15 1 - 29 mg/g KATHI SIMONS ([facility]) Comment:Testing performed by : [address] [address] Urine 05/09/2024 9:46 AM CDT 05/09/2024 12:13 PM CDT Bianca Sotelo NP LAB URINE ORDERABLES Final Result KATHI SIMONS ([facility]) 1 [facility] Department [place] [address] * COLONOSCOPY (08/20/2015) Colonoscopy Unknown Comment:KRISTYN Historical Provider HEALTH MAINTENANCE Final Result from Last 3 Months or Most Recently Relevant to Health Maintenance Insurance MEDICARE [facility] MEDICARE [facility] MEDICARE SUPPLEMENT MEDICARE [facility] MEDICARE SUPPLEMENT Advance Directives For more information, please contact: [phone] * Full Code (Latest Code Status on File) Date Activated Date Inactivated Comments 09/21/2024 5:06 AM 09/26/2024 12:07 AM * Full Code Date Activated Date Inactivated Comments 03/20/2021 2:39 PM 03/20/2021 10:00 PM * Full Code Date Activated Date Inactivated Comments 03/20/2021 3:38 AM 03/20/2021 2:39 PM * Full Code Date Activated Date Inactivated Comments 01/12/2019 9:28 AM 01/12/2019 6:06 PM * Full Code Date Activated Date Inactivated Comments 01/12/2019 2:49 AM 01/12/2019 9:28 AM Care Teams Painter Ordnance Relationship Specialty Start Date End Date Misbah Muniz MD [address] [place] [address] PCP - General 10/30/16 Homa King, WYATT [address] [place] [address] Nurse Practitioner Nurse Practitioner 12/30/18 Karri Courtney MD [address] [place] [address] Consulting Physician Cardiovascular Disease 01/12/19 Sarah Blount, MANAGEMENT INSTRUCTOR [address] [facility] [address] [place] [address] Nurse Practitioner Urology 05/04/23 [place] [address] [address] [facility] [address] [place] [address] Consulting Physician Endocrinology Diabetes & Metabolism 05/04/23 Tyler Luna MD [address] [place] [address] Referring Physician Cardiology 05/04/23
--- OUTSIDE RECORDS SUMMARY | 2025-02-01 07:49 | XMS_ITS | Encounter Summary ---
Author Organization [facility] Address [address] [facility] [address] [facility] [place] [address] Care Team Providers Care Bead Forming Machine Set Up Operator Name Role Phone Misbah Muniz MD Primary Care Provider [phone] [phone] Encounter Details Date Type Department Care Team (Late st Contact Info) Description 04/12/2023 Lab Requisition [facility] - DermPath Lab [address] [facility], [place] [address] Sammy Hardy MD [address] [place] [address] Social History Tobacco Use Types Packs/Day Years Used Date Smoking Tobacco: Never Assessed Sex and Gender Information Value Date Recorded Sex Assigned at Not on file 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 Gender Identity Not on file Sexual Orientation Not on file documented as of this encounter Plan of Treatment Not on file documented as of this encounter Procedures Procedure Name Priority Date/Time Associated Diagnosis Comments DERMATOPATHOLOGY Routine 04/12/2023 12:0 0 AM CDT documented in this encounter Results * DERMATOPATHOLOGY (04/12/2023 12:00 AM CDT) Case Report Dermatopathology Report Case: [id number] Authorizing Provider: Sammy Hardy MD Collected: 04/12/2023 12:00 AM Ordering Location: [facility] DermPath Lab Received: 04/13/2023 06:59 AM Pathologist: Junie Rucker MD Specimens: A) - Skin, left upper arm B) - Skin, left upper arm ant 4:16 PM CDT DERMATOPATHOLOGY LABORATORY Final Diagnosis Specimen A. SKIN, left upper arm: DERMAL SCAR (L90.5) PRESENT AT MARGIN (see microscopic description) Specimen B. SKIN, left upper arm ant: HYPERPLASTIC (HYPERTROPHIC) ACTINIC KERATOSIS; EXTENDING TO THE BASE OF THE SPECIMEN (L57.0) PRESENT AT MARGIN (see microscopic description and comment) 3 4:16 PM [facility] DERMATOPATHOLOGY LABORATORY at 1616 CDT Clinical History A-B: R/O Scar vs BCC Check margins 3 4:16 PM CDT DERMATOPATHOLOGY LABORATORY Gross Description Specimen A: Received is one formalin filled container labeled with the patient's name and designated left upper arm. The specimen consists of a shave biopsy measuring 6x4x1 mm. Jar 0. Specimen B: Received is one formalin filled container labeled with the patient's name and designated left upper arm ant. The specimen consists of a shave biopsy measuring 7x5x1 mm. Jar 0. 3 4:16 PM [facility] DERMATOPATHOLOGY LABORATORY Microscopic Description Specimen A. SKIN, left upper arm: There are fibroblasts and collagen bundles oriented parallel to the skin surface with elongated blood vessels, some of which are oriented perpendicular to the skin surface. This lesion is present at the margin of the specimen. Additional deeper sections were obtained and reviewed. Specimen B. SKIN, left upper arm ant: There is hyperkeratosis alternating with parakeratosis. There is epidermal hyperplasia with disorderly maturation of keratinocytes with nuclear pleomorphism confined to the lower half of the epidermis. This process extends to the base of the specimen. This lesion is present at the margin of the specimen. Additional deeper sections were obtained and reviewed. COMMENT: A squamous cell carcinoma cannot be ruled out. 3 4:16 PM T DERMATOPATHOLOGY LABORATORY Disclaimer An external and internal positive and negative controls are appropriate for the histochemical, immunohistochemical and immunofluorescence stain(s) in this case (if any), except where stated explicitly. The performance characteristics of the stain(s) cited in this report were developed and its performance characteristic determined by the Dermatopathology Laboratory at [facility], directed by Dr. Gayla Roper. These tests need not be, and therefore are not, approved by the [place] Food and Drug Administration. The tests are used for clinical purposes. Billing Codes Specimen Charges Stain Charges 14536 75740 1 1 3 4:16 PM CDT DERMATOPATHOLOGY LABORATORY Embedded Images 3 4:16 PM CDT DERMATOPATHOLOGY LABORATORY Pathology/Cytology TISSUE SPECIMEN FROM SKIN / Unknown 04/12/2023 04/13/2023 6:59 AM CDT Miscellaneous samples (specimen) TISSUE SPECIMEN FROM SKIN / Unknown 04/12/2023 04/13/2023 6:59 AM CDT us Sammy Hardy MD LAB - PATHOLOGY/CYTOLOGY ORDERAB LES Final Result DERMATOPATHOLOGY LABORATORY [facility] - Department of Dermatology [facility] [address] [place] [address], [address] [phone] documented in this encounter Visit Diagnoses Not on filedocumented in this encounter Care Teams Bead Forming Machine Set Up Operator Relationship Specialty Start Date End Date [place] [address] PCP - General 09/25/21 documented as of this encounter
--- OUTSIDE RECORDS SUMMARY | 2025-02-01 07:49 | XMS_ITS | Encounter Summary ---
Author Organization [facility] Address [address] [facility] [place] [address] Care Team Providers Care Patient Care Technician Name Role Phone Misbah Muniz MD Primary Care Provider [phone] Encounter Details Date Type Department Care Team (Late st Contact Info) Description 05/03/2023 Lab Requisition [facility] - DermPath Lab [address] [facility], [place] [address] Sammy Hardy MD [address] [place] [address] Social History Tobacco Use Types Packs/Day Years Used Date Smoking Tobacco: Never Assessed Sex and Gender Information Value Date Recorded Sex Assigned at Not on file 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 Gender Identity Not on file Sexual Orientation Not on file documented as of this encounter Plan of Treatment Not on file documented as of this encounter Procedures Procedure Name Priority Date/Time Associated Diagnosis Comments DERMATOPATHOLOGY Routine 05/03/2023 12:0 0 AM CDT documented in this encounter Results * DERMATOPATHOLOGY (05/03/2023 12:00 AM CDT) Case Report Dermatopathology Report Case: [id number] Authorizing Provider: Sammy Hardy MD Collected: 05/03/2023 12:00 AM Ordering Location: [facility] DermPath Lab Received: 05/04/2023 06:15 AM Pathologist: Junie Rucker MD Specimen: Skin, left upper arm ant 1:04 PM CDT DERMATOPATHOLOGY LABORATORY Final Diagnosis Specimen A. SKIN, left upper arm ant: DERMAL SCAR; PRESENT AT MARGIN RESIDUAL ACTINIC KERATOSIS NOT IDENTIFIED (L90.5) 1:04 PM CDT DERMATOPATHOLOGY LABORATORY at 1303 CDT Clinical History SCC. Check Margins. 1:04 PM CDT DERMATOPATHOLOGY LABORATORY Gross Description Specimen A: Received is one formalin filled container labeled with the patient's name and designated left upper arm ant. The specimen consists of a curettage and desiccation biopsy measuring 10x6x1 mm. Jar 0. 1:04 PM CDT DERMATOPATHOLOGY LABORATORY Microscopic Description Specimen A. SKIN, left upper arm ant: There are fibroblasts and collagen bundles oriented parallel to the skin surface. There are elongated blood vessels, some of which are oriented perpendicular to the skin surface. The scar is present at the margin of the specimen. No residual actinic keratosis is identified. 1:04 PM CDT DERMATOPATHOLOGY LABORATORY Disclaimer An external and internal positive and negative controls are appropriate for the histochemical, immunohistochemical and immunofluorescence stain(s) in this case (if any), except where stated explicitly. The performance characteristics of the stain(s) cited in this report were developed and its performance characteristic determined by the Dermatopathology Laboratory at [facility], directed by Dr. Gayla Roper. These tests need not be, and therefore are not, approved by the [place] Food and Drug Administration. The tests are used for clinical purposes. Billing Codes Specimen Charges Stain Charges 53783 1 1:04 PM CDT DERMATOPATHOLOGY LABORATORY Embedded Images 1:04 PM CDT DERMATOPATHOLOGY LABORATORY Pathology/Cytolog y TISSUE SPECIMEN FROM SKIN / Unknown 05/03/2023 05/04/2023 6:15 AM CDT us Sammy Hardy MD LAB - PATHOLOGY/CYTOLOGY ORDERAB LES Final Result DERMATOPATHOLOGY LABORATORY [facility] - Department of Dermatology [address], [address] [phone] documented in this encounter Visit Diagnoses Not on filedocumented in this encounter Care Teams Patient Care Technician Relationship Specialty Start Date End Date Misbah Muniz MD [address] [place] [address] PCP - General 09/25/21 documented as of this encounter
--- OUTSIDE RECORDS SUMMARY | 2025-02-01 07:50 | XMS_ITS | Encounter Summary ---
Author Organization [facility] Address [address] [place] [address] Care Team Providers Care Music Critic Name Role Phone Misbah Muniz MD Primary Care Provider [phone] [phone] Encounter Details Date Type Department Care Team (Late st Contact Info) Description 10/05/2022 Lab Requisition [facility] Derm[facility] Lab [address] 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 Gender Identity Not on file Sexual Orientation Not on file documented as of this encounter Plan of Treatment Not on file documented as of this encounter Procedures Procedure Name Priority Date/Time Associated Diagnosis Comments DERMATOPATHOLOGY Routine 10/05/2022 3:33 AM WASH TEST CHECKER documented in this encounter Results * DERMATOPATHOLOGY (10/05/2022 3:33 AM WASH TEST CHECKER) Case Report Dermatopathology Report Case: [id number] Authorizing Provider: Sammy Hardy MD Collected: 10/05/2022 03:33 AM Ordering Location: [facility] Derm[facility] Lab Received: 10/05/2022 02:23 PM Pathologist: Virgen Al MD Specimen: Skin, left upper arm 1:18 PM WASH TEST CHECKER DERMATOPATHOLOGY LABORATORY Final Diagnosis Specimen A. SKIN, left upper arm: BASAL CELL CARCINOMA, NODULAR TYPE (C44.619) 1:18 PM WASH TEST CHECKER DERMATOPATHOLOGY LABORATORY at 1318 WASH TEST CHECKER Clinical History R/O BCC 3 1:18 PM [facility] DERMATOPATHOLOGY LABORATORY Gross Description Specimen A: Received is one formalin filled container labeled with the patient's name and designated left upper arm. The specimen consists of a shave biopsy measuring 12x8x1 mm. Jar 0. 3 1:18 PM [facility] DERMATOPATHOLOGY LABORATORY Microscopic Description Specimen A. SKIN, left upper arm: Within the dermis there are aggregates of basaloid cells with a high nuclear to cytoplasmic ratio and peripheral palisading. 3 1:18 PM [facility] DERMATOPATHOLOGY LABORATORY Disclaimer An external and internal positive and negative controls are appropriate for the histochemical, immunohistochemical and immunofluorescence stain(s) in this case (if any), except where stated explicitly. The performance characteristics of the stain(s) cited in this report were developed and its performance characteristic determined by the Dermatopathology Laboratory at [facility], directed by Dr. Gayla Roper. These tests need not be, and therefore are not, approved by the [place] Food and Drug Administration. The tests are used for clinical purposes. Billing Codes Specimen Charges Stain Charges 41813 1 3 1:18 PM [facility] DERMATOPATHOLOGY LABORATORY Embedded Images 3 1:18 PM [facility] DERMATOPATHOLOGY LABORATORY Pathology/Cytolo gy TISSUE SPECIMEN FROM SKIN / Unknown 10/05/2022 3:33 AM WASH TEST CHECKER 10/05/2022 2:23 PM WASH TEST CHECKER Sammy Hardy MD LAB - PATHOLOGY/CYTOLOGY ORDERAB LES Final Result DERMATOPATHOLOGY LABORATORY [facility] - Department of Dermatology [facility] Medicine [address] [place] [address], [address] [place] [address], [facility] [phone] documented in this encounter Visit Diagnoses Not on filedocumented in this encounter Care Teams Music Critic Relationship Specialty Start Date End Date [place] [address] PCP - General 09/25/21 documented as of this encounter
--- OUTSIDE RECORDS SUMMARY | 2025-02-01 07:50 | XMS_ITS | Clinical Summary ---
Author Organization [facility] Address [address] [place] [address] Care Team Providers Care Regroover Name Role Phone Unavailable Primary Care Provider Unavailabl e Social History Tobacco Use Types Packs/Day Years Used Date Smoking Tobacco: Never Assessed Sex and Gender Information Value Date Recorded Sex Assigned at Not on file Legal Sex Male 9:16 PM CDT Gender Identity Not on file Sexual Orientation Not on file Plan of Treatment Health Maintenance Due Date Last Done Comments Hepatitis C Virus (HCV) Screening 1955 Colonoscopy 1998 Colorectal Cancer Screening 1998 Cologuard 2003 Immunochemical Fecal Occult Blood 2003 Zoster Immunization (1 of 2) 2003 Pneumococcal Immunization (50+ years) (2 of 2 - PCV) 04/30/2021 04/30/2020 Influenza Immunization (#1) 04/02/202404/03, 05/04/2019, 05/01/2018, Additional history exists SARS-COV-2 Immunization ( season) 2024 06/11/2021, 10/15/2020, 09/17/2020 Respiratory Syncytial Virus (RSV) Immunization (Adult) (1 - 1-dose 75+ series) 2028 DTaP/Tdap/Td Immunization Discontinued 04/23/2014 TdaP Immunization Completed 04/23/2014 Pneumococcal Immunization Combined Discontinued 04/30/2020 Hepatitis B Immunization Aged Out No longer eligible based on patient's age to complete this topic Meningococcal Immunization (ACWY) Aged Out No longer eligible based on patient's age to complete this topic Rotavirus Immunization Aged Out No lo nger eligible based on patient's age to complete this topic
--- OUTSIDE RECORDS SUMMARY | 2025-02-01 07:50 | XMS_ITS | Encounter Summary ---
Author Organization [facility] Address [address] [place] [address] Care Team Providers Care Push Button Switch Assembler Name Role Phone Misbah Muniz MD Primary Care Provider [phone] Encounter Details Date Type Department Care Team (Late st Contact Info) Description 10/19/2022 Lab Requisition [facility] [address] [place] [address] Sammy Hardy MD [address] [place] [id number] Social History Tobacco Use Types Packs/Day Years Used Date Smoking Tobacco: Never Assessed Sex and Gender Information Value Date Recorded Sex Assigned at Not on file 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 Gender Identity Not on file Sexual Orientation Not on file documented as of this encounter Plan of Treatment Not on file documented as of this encounter Procedures Procedure Name Priority Date/Time Associated Diagnosis Comments DERMATOPATHOLOGY Routine 10/19/2022 12:0 0 AM CDT documented in this encounter Results * DERMATOPATHOLOGY (10/19/2022 12:00 AM CDT) Case Report Dermatopathology Report Case: [id number] Authorizing Provider: Sammy Hardy MD Collected: 10/19/2022 12:00 AM Ordering Location: [facility] Received: 10/19/2022 02:54 PM Pathologist: Junie Rucker MD Specimen: Skin, right anterior chest 12:53 PM CDT DERMATOPATHOLOGY LABORATORY Amended Report Correction of Spelling 12:53 PM CDT DERMATOPATHOLOGY LABORATORY Final Diagnosis Specimen A. SKIN, right anterior chest: BASAL CELL CARCINOMA, NODULAR TYPE (C44.519) PRESENT AT MARGIN 12:53 PM CDT DERMATOPATHOLOGY LABORATORY Amendment electronically signed by Michelle Grijalva on 10/29/2022 at 1253 CDT at 1233 CDT Clinical History R/O BCC. Please Check Margins. 12:53 PM CDT DERMATOPATHOLOGY LABORATORY Gross Description Specimen A: Received is one formalin filled container labeled with the patient's name and designated right anterior chest. The specimen consists of a shave biopsy measuring [id number] and it is inked. Jar 0. 12:53 PM CDT DERMATOPATHOLOGY LABORATORY Microscopic Description Specimen A. SKIN, right anterior chest: Within the dermis there are aggregates of basaloid cells with a high nuclear to cytoplasmic ratio and peripheral palisading. This lesion is present at the margin of the specimen. 12:53 PM CDT DERMATOPATHOLOGY LABORATORY Disclaimer An external and internal positive and negative controls are appropriate for the histochemical, immunohistochemical and immunofluorescence stain(s) in this case (if any), except where stated explicitly. The performance characteristics of the stain(s) cited in this report were developed and its performance characteristic determined by the Dermatopathology Laboratory at [facility], directed by Dr. Gayla Roper. These tests need not be, and therefore are not, approved by the [place] Food and Drug Administration. The tests are used for clinical purposes. Billing Codes Specimen Charges Stain Charges 20674 1 3 12:53 PM CDT DERMATOPATHOLOGY LABORATORY Embedded Images 3 12:53 PM CDT DERMATOPATHOLOGY LABORATORY Pathology/Cytolog y TISSUE SPECIMEN FROM SKIN / Unknown 10/19/2022 10/19/2022 2:54 PM CDT us Sammy Hardy MD LAB - PATHOLOGY/CYTOLOGY ORDERAB LES Edited Result - Final DERMATOPATHOLOGY LABORATORY [facility] - Department of Dermatology [address], [address] [phone] documented in this encounter Visit Diagnoses Not on filedocumented in this encounter Care Teams Push Button Switch Assembler Relationship Specialty Start Date End Date [place] [address] PCP - General 09/25/21 documented as of this encounter
--- OUTSIDE RECORDS SUMMARY | 2025-02-01 07:50 | XMS_ITS | Referral Summary ---
Author Organization [facility] Address [address] [place] [address] Care Team Providers Care Stranner Name Role Phone Misbah Muniz MD Primary Care Provider [phone] Homa King CYTOTECHNOLOGIST/HISTOTECHNOLOGIST Unavailable Karri Courtney MD Unavailable [phone] Sarah Blount CYTOTECHNOLOGIST/HISTOTECHNOLOGIST Unavailable Lakhwinder Jarrell MD Unavailable Tyler Luna MD Unavailable Encounters Date Type Department Care Team Description 01/11/2025 Orders Only [facility] Health Information Management [address] [place] [address] Misbah Muniz MD 01/11/2025 Orders Only [facility] Medical Group Diabetes and Endocrinology [address] [place] [phone] ProviderMary Jo MD 01/04/2025 Telephone [facility] Medical Group Diabetes and Endocrinology [address] [place] [phone] Ludy Hayes NP [facility] 01/04/2025 11:30 AM CDT Office Visit [facility] [address] [place] [address] Bianca Sotelo NP Lung nodules (Primary Dx); Prostate irregularity; Class 1 obesity due to excess calories without serious comorbidity with body mass index (BMI) of 32.0 to 32.9 in adult 01/03/2025 9:30 AM CDT Office Visit [facility] Diabetes and Endocrinology [address] [place] [phone] Ludy Hayes NP Type 2 diabetes mellitus with hyperglycemia, with long-term current use of insulin (HCC) (Primary Dx); Hypertension associated with diabetes (HCC); Hyperlipidemia associated with type 2 diabetes mellitus (HCC) 12/29/2024 Orders Only [facility] Orthopedic and Sports Medicine [address] [place] [phone] Demond Biggs MD Rotator cuff arthropathy of right shoulder (Primary Dx); Arthrosis of right acromioclavicular joint 12/29/2024 11:00 AM CDT Office Visit [facility] Orthopedic [facility] Sports Medicine [address] [place] [phone] Demond Biggs MD Rotator cuff arthropathy of right shoulder (Primary Dx) 12/19/2024 9:00 AM CDT Office Visit [address] [place] [phone] Kumar Jones MD Lipoma of right shoulder 12/12/2024 8:30 AM CDT [facility] [address] [phone] Bianca Sotelo NP Type 2 diabetes mellitus with hyperglycemia, with long-term current use of insulin (HCC) (Primary Dx); Chronic systolic congestive heart failure (HCC); Current moderate episode of major depressive disorder without prior episode (HCC); Coronary artery disease involving [place] coronary artery of [place] heart without angina pectoris; Prostate irregularity; Bradycardia; Chronic right shoulder pain; Hyperlipidemia associated with type 2 diabetes mellitus (HCC); Class 1 obesity due to excess calories without serious comorbidity with body mass index (BMI) of 32.0 to 32.9 in adult 11/17/2024 10:45 AM CDT - 11/17/2024 11:59 PM CDT Hospital Encounter [facility] [address] [facility], [address] [place] [address] Natasha Abdalla NP Spondylosis of lumbar region without myelopathy or radiculopathy (Primary Dx); Cervicalgia Discharge Disposition: Discharge to home or self care 11/16/2024 Orders Only [facility] [address] [place] [address] Misbah Muniz MD 11/16/2024 Telephone [facility] Diabetes and Endocrinology [address] [place] [phone] Ludy Hayes NP Med Management (Novolog) 11/15/2024 10:30 AM CDT Office Visit [facility] Medical Group Orthopedic and Sports Medicine [address] [place] [phone] Rajendra Gooden PA Lipoma of extremity (Primary Dx); Arthrosis of right acromioclavicular joint 11/14/2024 Results Follow-Up [facility] [address] [place] [address] Jessica Crawley NP Magnesium, Comprehensive metabolic panel, eGFR 11/14/2024 10:15 AM CDT Lab [facility] [address] [place] [phone] Muscle cramping 11/14/2024 7:00 AM CDT Office Visit [facility] [address] [place] [address] Jessica Crawley NP Muscle cramping (Primary Dx); Acute right ankle pain; Class 1 obesity without serious comorbidity with body mass index (BMI) of 32.0 to 32.9 in adult, unspecified obesity type 11/10/2024 Results Follow-Up [facility] Medical [facility] Orthopedics and Sports Medicine [address] [facility] [address] [place] [phone] Rajendra Gooden PA MRI Shoulder Right WO Contrast 11/08/2024 6:25 AM CDT - 11/08/2024 11:59 PM CDT Hospital Encounter [facility] [address] [place] [address] Arthrosis of right acromioclavicular joint; Rotator cuff arthropathy of right shoulder Discharge Disposition: Discharge to home or self care from Last 3 Months Allergies Active Allergy Reactions Criticality Noted Date [...] hyperglycemia, with long-term current use of insulin (HCC),Hyperlipid emia, unspecified hyperlipidemia type TEST FOUR TIMES DAILY 400 strip 1 2022 Active nitroglycerin (NITROSTAT) 0.[address] 1 tablet (0.4 mg total) under the tongue every 5 (five) minutes as needed for chest pain 30 tablet 3 2023 Active Vascepa 1 gram capsuleIndicatio ns:Hyperlipidemi a associated with type 2 diabetes mellitus (HCC) TAKE 2 CAPS BY MOUTH TWICE A DAY 360 capsule 2 2024 Active pen needle, diabetic (BD Ultra-Fine Mini Pen Needle) 31 gauge x 3/16 needleIndication s:Type 2 diabetes mellitus with hyperglycemia, with long-term current use of insulin (HCC) USE DIRECTED THREE TIMES DAILY 300 each 3 2024 Active tamsulosin (FLOMAX) 0.4 mg extended release capsule TAKE 1 CAPSULE BY MOUTH EVERY DAY WITH DINNER 90 capsule 1 2024 Active LANTUS 100 unit/mL (3 mL) pen for injectionIndicat ions:Type 2 diabetes mellitus with hyperglycemia, with long-term current use of insulin (HCC) Inject 30 Units under the skin nightly [...] CDT): Holter ordered by cardiology, patient will machine pecan picker tomorrow. Carvedilol reduced from 6.25 bid to [...] for [facility] wellness [facility] Assessment & Plan (2024 7:02 AM [...] 2gm bid. Last lipid panel: 12/12/24 LDL=78, JI=057. Assessment & Plan (12/12/2024 1:14 PM CDT): LDL = 78, continues high-intensity statin, atorvastatin 80 mg daily as well as Vascepa. Strongly encouraged working on avoiding dietary fats such as fried, greasy foods as well as limiting red meats. Assessment & Plan (09/07/2024 9:50 AM TRANSCRIBER): Chronic problem. Currently taking Atorvastatin 80mg & new vascepa 2gm bid. Last lipid panel: 05/09/24 LDL=87, BG=584 Assessment & Plan (05/22/2024 9:35 AM CDT): Chronic problem. Currently taking Atorvastatin 80mg & new vascepa 2gm bid. Last lipid panel: 05/09/24 LDL=87, WX=488 Assessment & Plan (01/18/2024 1:48 PM CDT): Chronic problem. Currently taking Atorvastatin 80mg & new vascepa 2gm bid. Last lipid panel: 05/04/23 LDL=77, UD=977. Assessment & Plan (09/21/2023 1:08 PM TRANSCRIBER): Chronic problem. Currently taking Atorvastatin 80mg & new vascepa 2gm bid. Last lipid panel: 05/04/23 LDL=77, VW=923. Assessment & Plan (06/15/2023 11:47 AM TRANSCRIBER): Chronic problem. Currently taking Atorvastatin 80mg & new vascepa 2gm bid. Last lipid panel: 05/04/23 LDL=77, NQ=663. No changes at this time. Assessment & Plan (05/04/2023 12:22 PM CDT): Continues atorvastatin 80 mg and denies myalgias. Will repeat fasting labs. Assessment & Plan (11/24/2022 10:15 AM CDT): Chronic problem. Currently taking Atorvastatin 80mg. Last lipid panel: 05/18/22 LDL=89, VX=155. No changes at this time. Assessment & Plan (04/23/2022 9:03 AM CDT): Chronic problem. On statin therapy, no changes. Assessment & Plan (01/15/2022 9:26 AM CDT): Chronic problem. On statin therapy, no changes. Flank pain 07/24/2021 Assessment & Plan (07/24/2021 12:49 PM TRANSCRIBER): Results for orders placed or performed in visit on 07/24/21 POCT urinalysis dipstick Result Value Ref Range Color, Urine, POC Yellow Clarity, ur, POC Clear Clear Glucose, ur, POC Negative Negative mg/dL Bilirubin, ur, POC Negative Negative, Small, Moderate, Large Ketones, ur, POC Negative Negative Specific [place], POC 1.025 1.005 - 1.030 Blood, ur, [...] 07/24/20 Assessment & Plan (07/24/2021 12:49 PM TRANSCRIBER): PSA ordered. Chest pain 03/20/2021 Chronic bilateral low back pain without sciatica 08/13/2020 Assessment & Plan (07/24/2021 12:50 PM TRANSCRIBER): Discussed differential. Will obtain imaging today to determine next steps. Will plan for PT and nsaids. Reviewed s/s warranting return. Assessment & Plan (08/13/2020 9:40 AM TRANSCRIBER): Encouraged otc tylenol prn back pain. Discussed [...] (08/24/2019): Added automatically from request for surgery [id number] Coronary artery disease invo lving [place] coronary artery of [place] heart 01/12/2019 Overview (04/18/2021): Status post Synergy [...] Morphine as needed Atrial fibrillation with RVR ([facility]) 9 Overview (04/18/2021): Not on full-dose oral [...] ventricular rate of low 110s Continue monitoring, Lifevest is on NPO after [place] [facility] Consultted, patient is planned for Cardiac catheterization in a.m. Assessment & Plan (12/29/2018 5:20 PM CDT): Patient was seen and evaluated by Cardiology. He was switched to Eliquis oral anticoagulation Needs to rule out [place] for symptoms of angina. Patient possibly to [...] cardiology. Assessment & Plan (09/07/2024 9:50 AM TRANSCRIBER): Chronic problem. Controlled on current entresto 24-26mg [...] cardiology. Assessment & Plan (09/21/2023 1:08 PM TRANSCRIBER): Chronic problem. Controlled on current entresto 24-26mg bid, carvedilol 6.25mg bid. Managed by cardiology. Assessment & Plan (06/15/2023 11:46 AM TRANSCRIBER): Chronic problem. Controlled on current entresto 24-26mg [...] time. Assessment & Plan (08/25/2022 2:14 PM TRANSCRIBER): Chronic , well controlled Continue current meds [...] plan. Assessment & Plan (09/19/2020 3:06 PM TRANSCRIBER): Controlled on current medications. Continue plan. Assessment [...] activity. Assessment & Plan (07/24/2021 12:49 PM TRANSCRIBER): Discussed need for weight loss. Discussed healthy diet and importance of regular physical activity. Assessment & Plan (08/13/2020 9:39 AM TRANSCRIBER): Reviewed need to lose weight, reviewed health [...] on labs. UTD DM eye exam (12/23/23 [facility] Had appt 11/2024; will send letter to [...] PM CDT): A1c 8.6%, now 8.4 %. Ltiybw-09-45 units daily. Humalog 5-8 units with meals, typically 5 units with lunch and 8 units with dinner. Patient reports he typically does not eat breakfast. Following with endocrinology, A1c has shown slight improvement continue focusing on diet changes. Recommended Lantus 25 units nightly Assessment & Plan (09/07/2024 10:06 AM TRANSCRIBER): Chronic problem. A1c not at goal and [...] on labs. UTD DM eye exam (12/23/23 [facility]). Strive for regular exercise (30min most days) [...] on labs. UTD DM eye exam (12/23/23 [facility]). Strive for regular exercise (30min most days) [...] on labs. UTD DM eye exam (12/23/23 [facility]). Strive for regular exercise (30min most days) [...] infection. Assessment & Plan (09/21/2023 1:49 PM TRANSCRIBER): Chronic problem. A1c not at goal and [...] infection. Assessment & Plan (06/15/2023 12:02 PM TRANSCRIBER): Chronic problem. A1c not at goal but [...] SE & scheduling. Verified that he uses [employer]. Will send [employer] message if questions or concerns. Not physically [...] labs. Assessment & Plan (08/25/2022 2:13 PM TRANSCRIBER): Chronic, uncontrolled, worsening Importance of exercise and [...] exercise. Assessment & Plan (09/30/2021 10:20 AM TRANSCRIBER): Hba1c was Lab Results Component Value Date [...] lwer the Novolog Send a message via PENRITH ,every two weeks , about your sugars. Pt to apply to [facility] patient's assistance program Assessment & Plan (07/24/2021 12:47 PM TRANSCRIBER): Lab Results Component Value Date HGBA1C 8.5 [...] reviewed. Assessment & Plan (09/19/2020 3:08 PM TRANSCRIBER): A1c 7.7. Continues to make his own adjustments to insulin plan. Increase Jardiance to 2 tabs per day = 20 mg and will send rx for Farxiga 10 mg to see if more cost effective. Advised to schedule eye exam. Assessment & Plan (05/23/2020 3:27 PM CDT): A1c 7.9, worsening. Continues to not take his insulin according to plan despite education at [facility]. Reviewed concept of basal vs bolus [...] Jardiance Assessment & Plan (08/15/2019 9:57 AM TRANSCRIBER): Hba1c was Lab Results Component Value Date [...] exercise. Assessment & Plan (07/13/2018 3:21 PM TRANSCRIBER): Recent A1c 7.0 without reported hypoglycemia. No [...] goal hba1c is under 7.0 to prevent senior test engineer diabetes complications ( eye , kidney and [...] Resolved Date BMI 33.0-33.9,adult 08/13/2020 08/13/19 21 Immunizations Immunization Administration Dates Next Due Influenza, [...] Unspecified 10/15/2020,09/17/2020 Tdap 05/08/2014,04/23/2014 ZOSTER Recombinant 06/16/2022 Social History Tobacco Use Types Packs/Day Years Used Date Smoking Tobacco: Former Cigarettes Q uit: 1975 Smokeless Tobacco: Former Chew Tobacco Cessation:Counseling Given: Not Answered Comments:Smoking History Packs/day: 1 ppd x 1 year. Alcohol Use Standard Drinks/Week Comments No 0 (1 standard drink = 0.6 oz pur e alcohol) [facility] Utilities Answer Date Recorded In the past 12 months has th e electric, gas, oil, or water company threatened to shut off services in your [...] often do you attend chur ch or congregation services? More than 4 times per year 09/26/2024 Do you belong to any clubs o r organizations such as taoist groups, unions, fraternal or athletic groups, or [...] any time in the past 12 m [facility], were you homeless or living in a detention (including now)? No 09/26/2024 Personal Safety Answer Date Recorded Have you ever been in or are you currently in a harmful physical or emotional relationship or is someone making you feel afraid or unsafe? 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 [place] [address] [place] [address] 02/05/2025 10:00 AM CDT Anesthesia Event [facility] Operating [facility] [address] [place] [address] Khai Tapia MD [address] [facility] [place] [address] 02/05/2025 10:00 AM CDT - 02/05/2025 11:00 AM CDT Surgery [facility] Operating Room [address] [place] [address] Kumar Jones MD [address] [place] [address] [place] [id number] EXCISION RIGHT SHOULDER MASS Scheduled Procedures Name Priority Associated Diagnoses Date/Ti me EXCISION SOFT TISSUE MASS Lipoma of right shoulder 02/05/2025 10:00 AM CDT Medical Devices Implanted Type Area Underground Mine Superintendent Device Identifier Shelf Expiration Date Model / Serial / Lot [employer] [id number] Synergy 2.75mm 12mm 144cm Radiopaque 1 Access Port Inflation - [id number] Implanted:Qty: 1 on 01/10/2019 by Karri Courtney MD at [facility] Stent [employer] 04/19/2020 [id number] 270 / / [id number] [employer] [id number] Synergy 3.5mm 24mm 144cm Radiopaque 1 Access Port Inflation Lumen - [id number] Implanted:Qty: 1 on 01/10/2019 by Karri Courtney MD at [facility] Stent [employer] 05/22/2020 [id number] 350 / / [id number] [employer] [id number] Synergy 2.75mm 20mm 144cm Radiopaque 1 Access Port Inflation - [id number] Implanted:Qty: 1 on 01/10/2019 by Karri Courtney MD at [facility] Stent [employer] 04/13/2020 [id number] 270 / / [id number] [employer] [id number] Angio-Seal Evolution 6fr .035in Guidewire Bypass Tube Suture - [id number] Implanted:Qty: 1 on 01/10/2019 by Karri Courtney MD at [facility] [employer] 09/30/2019 [id number] / / Procedures Procedure Name Priority Date/Time Associated Diagnosis Comments CARDIOLOGY DOCUMENT SCAN 01/11/2025 POCT GLUCOSE Routine 01/03/2025 9:29 AM CDT Type 2 diabetes mellitus with hyperglycemia, with long-term current use of insulin (HCC) RI CARDIAC BLOOD POOL IMAGING (REST) Schedule Routine, [...] associated with type 2 diabetes mellitus (HCC) LA ARTHROCENTESIS ASPIR&/INJ INTERM JT/BURS W/US Routine 11/15/2024 [...] shoulder PSA SCREEN Routine 10/04/2024 11:02 AM TRANSCRIBER Urinary retention CT ABDOMEN PELVIS W CONTRAST ED 09/21/2024 2:06 AM TRANSCRIBER ALBUMIN CREATININE RATIO, URINE Routine 05/09/2024 9:46 AM CDT Hypertension associated with diabetes (HCC) Chronic systolic congestive heart failure (HCC) Hyperlipidemia associated with type 2 diabetes mellitus (HCC) Coronary artery disease of [place] artery of [place] heart with stable angina pectoris Type 2 diabetes mellitus with hyperglycemia, with long-term current use of insulin (HCC) COLONOSCOPY Routine 08/20/2015 from Last 3 Months or Most Recently Relevant to Health Maintenance Results * Cardiology Document Scan (01/11/2025) Anatomical Region Laterality Modality Other us Misbah Muniz MD CV CARDIAC SERVICES [facility] Final Result * (ABNORMAL) POCT glucose (01/03/2025 9:29 AM CDT) Glucose Blood, POC 181 Normal Fasting 70 [...] DIABETES EYE EXAM (12/26/2024 7:35 AM CDT) Result [facility] Historical Provider HEALTH MAINTENANCE Edited Result - Final * (ABNORMAL) POCT hemoglobin A1c (12/12/2024 8:20 AM CDT) Hemoglobin A1C, POC 8.4(A) 4.0 - 5.6 % Capillary blood 12/12/2024 8 :20 AM CDT Bianca Sotelo NP POINT OF CARE TEST ORDERABL ES Final Result * (ABNORMAL) POCT lipid panel (12/12/2024 8:20 AM CDT) Cholesterol, POC 139 <200 MG/DL Comment:CHk=693 HDL, POC 37(A) >=40 mg/dL Triglycerides, POC 117 <=149 mg/dL LDL Cholesterol POC 78 <=129 mg/dL Chol/HDL Ratio, POC 3.7 NONE Non-HDL Cholesterol, POC 101 NONE mg/dL Cholesterol Total, POC 139 30 - 199 mg/dL Capillary blood 12/12/2024 8 :20 AM CDT Bianca Sotelo NP POINT OF CARE TEST ORDERABL ES Final Result * LA ARTHROCENTESIS ASPIR&/INJ INTERM JT/BURS W/US (11/15/2024 10:30 [...] was last reviewed 2021. Testing performed by: [facility], [address] [place] [address], [place]., [address] Blood 11/14/2024 10:1 3 AM CDT 11/14/2024 2:04 PM CDT Jessica Crawley CYTOTECHNOLOGIST/HISTOTECHNOLOGIST LAB BLOOD ORDERABLES Final Re sult KATHI SIMONS (RADU) 1 [facility] [place] [address] * Magnesium (11/14/2024 10:13 AM CDT) Magnesium 1.9 1.4 - 2.5 mg/dL Comment:Testing performed by : [address], [address] Blood 11/14/2024 10:1 3 AM CDT 11/14/2024 1:54 PM CDT Jessica Crawley CYTOTECHNOLOGIST/HISTOTECHNOLOGIST LAB BLOOD ORDERABLES Final Re sult Performing Organization Address [facility] Co de Phone Number KATHI SIMONS ([place]) [address] [facility] [place] [address] * (ABNORMAL) Comprehensive metabolic panel (11/14/2024 10:13 AM CDT) Sodium 140 135 - 145 mmol/L Comment:Testing performed by : [address] [address] Potassium, pl 4.7 3.3 - 4.9 mmol/L [facility] ([facility]) Comment:Testing performed by : [address], [address] Chloride 103 97 - 110 mmol/L [facility] ([facility]) Comment:Testing performed by : [address], [address] CO2 29 22 - 32 mmol/L [facility] ([facility]) Comment:Testing performed by : [address], [address] Anion gap 8 2 - 15 mmol/L [facility] ([facility]) Comment:Testing performed by : [address], [address] BUN 18 6 - 25 mg/dL [facility] ([facility]) Comment:Testing performed by : [address] [address] Creatinine 0.73(L) 0.80 - 1.30 mg/dL [facility] ([facility]) Comment:Testing performed by : [address] [address] Glucose 184 70 - 199 mg/dL CERNER [...] classification and Diagnosis of Diabetes Diabetes Care 202; 46: S19-S40. Current interpretive data was last revised 2022. Testing performed by: [address], [address] Calcium 9.4 8.5 - 10.3 mg/dL [facility] ([facility]) Comment:Testing performed by : [address], [address] Bilirubin, total 1.2 0.1 - 1.2 mg/dL [facility] ([facility]) Comment:Testing performed by : [address] [address] Protein, pl 6.7 6.5 - 8.5 g/dL [facility] ([facility]) Comment:Testing performed by : [address], [address] Albumin 4.0 3.5 - 5.0 g/dL [facility] ([facility]) Comment:Testing performed by : [address], [address] Alk phos 89 40 - 130 Units/L [facility] ([facility]) Comment:Testing performed by : [address], [address] ALT 51 7 - 55 Units/L [facility] ([facility]) Comment:Testing performed by : [address], [address] AST 24 10 - 50 Units/L [facility] ([facility]) Comment:Testing performed by : [facility], [address] [place] [address], [place]., [address] Blood 11/14/2024 10:1 3 AM CDT 11/14/2024 1:54 PM CDT us Jessica Crawley NP LAB BLOOD ORDERABLES Final Re sult KATHI SIMONS (RADU) 1 [facility] [place] [address] * MRI Shoulder Right WO Contrast (11/08/2024 [...] by Oz Rivero M.D. JR: Report ID: [id number] Reading Location: [id number] Procedure Note Oz Rivero MD - 11/09/2024 EXAM DESCRIPTION: MRI SHOULDER RIGHT WO CONTRAST REASON FOR STUDY: Right shoulder pain Shoulder pain x 6 months, no injury or trauma, HX rotator cuff [id number] TECHNIQUE: Multiplanar, multisequence MRI of the right [...] by Oz Rivero M.D. JR: Report ID: [id number] Reading Location: [id number] us Rajendra GARCIA IMG MRI PROCEDURES Final Re sult * PSA screen (10/04/2024 11:02 AM TRANSCRIBER) PSA-Total 4.82 <=6.20 ng/mL Comment: Interpretive Data [...] data last revised 21. Testing performed by: [facility], [address] [place] [address]., [address] Blood 10/04/2024 11:0 2 AM TRANSCRIBER 10/04/2024 6:41 PM TRANSCRIBER us Misbah Muniz MD LAB BLOOD ORDERABLES Linda l Result KATHI SIMONS [place] [address] [facility] [place] [address] * CT Abdomen Pelvis W Contrast (09/21/2024 2:06 AM TRANSCRIBER) Anatomical Region Laterality Modality Body N/A Computed Tomogra phy 09/21/2024 2:58 AM TRANSCRIBER Narrative 09/21/2024 3:03 AM TRANSCRIBER EXAM DESCRIPTION: CT ABDOMEN PELVIS W CONTRAST [...] by Dulce Amato M.D. SN: Report ID: [id number] Reading Location: [id number] Procedure Note Dulce Amato MD - 09/21/2024 [...] by Dulce Amato M.D. SN: Report ID: [id number] Reading Location: [place] [address] Evelyn Byers MD IMG CT PROCEDURES F inal Result * Albumin Creatinine Ratio, Urine (05/09/2024 9:46 AM CDT) Albumin Ur <12.0 mg/L Comment: Interpretive Data No reference range established. Current interpretive data was last revised 2018. Testing performed by: [address] [address] Creatinine Ur 80.1 mg/dL KATHI SIMONS (RAD[facility]) Comment: Interpretive Data No reference range established. Current interpretive data was last revised 2018. Testing performed by: [facility], [address] [place] [address]., [address] Albumin Creatinine Ratio, Ur <15 1 - 29 mg/g KATHI SIMONS (RADU) Comment:Testing performed by : [address] [address] Urine 05/09/2024 9:46 AM CDT 05/09/2024 12:13 PM CDT Bianca Sotelo CYTOTECHNOLOGIST/HISTOTECHNOLOGIST LAB URINE ORDERABLES Final Result KATHI SIMONS (RAD[facility]) 1 [facility] [place] [address] * COLONOSCOPY (08/20/2015) Pathologist [facility] Colonoscopy Unknown Comment:KRISTYN Historical Provider HEALTH MAINTENANCE Final Result from Last 3 Months or Most Recently Relevant to Health Maintenance Insurance MEDICARE [facility] MEDICARE [facility] MEDICARE SUPPLEMENT MEDICARE [facility] MEDICARE SUPPLEMENT Advance Directives For more information, please contact: [phone] * Full Code (Latest Code Status on [...] 2:49 AM 01/12/2019 9:28 AM Care Teams Stranner Relationship Specialty Start Date End Date Misbah Muniz MD [address] [place] [address] PCP - General 10/30/16 Homa King, WYATT [address] [place] [address] Nurse Practitioner Nurse Practitioner 12/30/18 Karri Courtney MD [address] [place] [address] Consulting Physician Cardiovascular Disease 01/12/19 Sarah Blount, CYTOTECHNOLOGIST/HISTOTECHNOLOGIST [id number] [facility] [address] [place] [address] Nurse Practitioner Urology 05/04/23 [place] [id number] [facility] [address] [place] [address] Consulting Physician Endocrinology Diabetes & Metabolism 05/04/23 Tyler Luna MD [address] [place] [address] [address] [place] [address] Referring Physician Cardiology 05/04/23
== END 2025-02-01 07:45 | disposition home or self-care (01) ==
PROVIDERS: PCP Family Medicine; Visit Provider Nurse Practitioner
DX: C61 Malignant neoplasm of prostate (principal); R91.8 Other nonspecific abnormal finding of lung field
CPT/HCPCS: 78815; A9596